=== PATIENT | female | born 1970 | race Caucasian/White ===

== ENCOUNTER 2017-04-10 21:18 | Emergency (ER) | payer OTHER ==
[2017-04-10 23:52] LABS: Anion Gap 23 mmol/L; BUN/Creatinine Ratio 23.33; Blood Urea Nitrogen 14 mg/dL (7-17); Calcium 9.2 mg/dL (8.4-10.2); Carbon Dioxide 24 mmol/L (22-30); Chloride 94.6 mmol/L (98-107); Glucose 374 mg/dL (65-100); Potassium 4.3 mmol/L (3.6-5.0); Sodium 137 mmol/L (137-145)
[2017-04-10 23:52] LABS: Creatine Kinase MB 1.9 ng/mL (0.0-4.0)
[2017-04-10 23:55] LABS: Creatine Kinase 60 units/L (30-135)
[2017-04-11 00:01] LABS: Hematocrit 39.6 % (30.3-42.9); Hemoglobin 13.1 gm/dl (10.1-14.3); Mean Corpuscular HGB Conc 33 % (30-34); Mean Corpuscular Hemoglobin 29 pg (28-32); Mean Corpuscular Volume 88 fl (79-97); Platelet Count 273 K/mm3 (140-440); Red Blood Count 4.53 M/mm3 (3.65-5.03); Red Cell Distribution Width 13.3 % (13.2-15.2); White Blood Count 16.3 K/mm3 (4.5-11.0)
[2017-04-11 00:11] LABS: INR 1.03 (0.87-1.13)
[2017-04-11 00:12] LABS: Partial Thromboplastin Time 28.1 Sec. (24.2-36.6)
[2017-04-11 01:10] LABS: Bacteria,Urine 3+ /HPF (Negative); Bilirubin,Urine NEG (Negative); Blood,Urine LG (Negative); Ketones,Urine 20 mg/dL (Negative); Leukocyte Esterase,Urine TR (Negative); Mucus,Urine FEW /HPF; Nitrite,Urine NEG (Negative); Urobilinogen,Urine < 2.0 mg/dL (<2.0)
[2017-04-11] MEDS ORDERED: ZOFRAN IV ONE (03:56)
[2017-04-11] MEDS ORDERED: CLEOCIN 900 MG/50 mL 900 MG/50 ML BAG IV ONE (03:56)
[2017-04-11] MEDS ORDERED: MORPHINE IV ONE (03:56)
--- NOTE | 2017-04-11 04:01 | Emergency Department Report ---
- General Chief complaint: Skin/Abscess/Foreign Body Stated complaint: ABCESS/RECTAL PAIN Source: patient Mode of arrival: Ambulatory Limitations: No Limitations - History of Present Illness Initial comments: 46 years old female diabetic complaining off left buttock swollen tender lesion for 2 days. She denied any fever nausea or vomiting. No other complaint at this moment. MD complaint: abscess/boil -: days(s) Location: buttocks Severity scale (0 -10): 6 Quality: sharp Associated symptoms: denies other symptoms - Related Data Home Medications Medication Instructions Recorded Confirmed Last Taken Clopidogrel [Plavix] 75 mg PO QDAY 04/11/17 04/11/17 Unknown Insulin Aspart Prot/Aspart(Nf) 20 units SQ DAILY 04/11/17 04/11/17 Unknown [Novolog Mix 70/30] metFORMIN [Glucophage] 500 mg PO BID 04/11/17 04/11/17 Unknown Previous Rx's Medication Instructions Recorded Last Taken Type Clindamycin [Clindamycin CAP] 300 mg PO Q8H #30 cap 04/11/17 Unknown Rx Ondansetron [Zofran Odt] 4 mg PO Q8HR PRN #14 tab.rapdis 04/11/17 Unknown Rx traMADol [Ultram] 50 mg PO Q6HR PRN #14 tablet 04/11/17 Unknown Rx Allergies Allergy/AdvReac Type Severity Reaction Status Date / Time No Known Allergies Allergy Unverified 10/13/13 06:43 Abscess Boil HPI - HPI Chief Complaint: Skin/Abscess/Foreign Body Stated Complaint: ABCESS/RECTAL PAIN Home Medications: Home Medications Medication Instructions Recorded Confirmed Last Taken Clopidogrel [Plavix] 75 mg PO QDAY 04/11/17 04/11/17 Unknown Insulin Aspart Prot/Aspart(Nf) 20 units SQ DAILY 04/11/17 04/11/17 Unknown [Novolog Mix 70/30] metFORMIN [Glucophage] 500 mg PO BID 04/11/17 04/11/17 Unknown Previous Rx's Medication Instructions Recorded Last Taken Type Clindamycin [Clindamycin CAP] 300 mg PO Q8H #30 cap 04/11/17 Unknown Rx Ondansetron [Zofran Odt] 4 mg PO Q8HR PRN #14 tab.rapdis 04/11/17 Unknown Rx traMADol [Ultram] 50 mg PO Q6HR PRN #14 tablet 04/11/17 Unknown Rx Allergies/Adverse Reactions: Allergies Allergy/AdvReac Type Severity Reaction Status Date / Time No Known Allergies Allergy Unverified 10/13/13 06:43 ED Review of Systems ROS: Stated complaint: ABCESS/RECTAL PAIN Other details as noted in HPI Comment: All other systems reviewed and negative Constitutional: denies: chills, fever Respiratory: denies: cough, shortness of breath Cardiovascular: denies: chest pain Gastrointestinal: denies: abdominal pain, nausea, vomiting Musculoskeletal: denies: back pain Skin: lesions Neurological: denies: headache, weakness, numbness ED Past Medical Hx - Past Medical History Previous Medical History?: Yes Hx Hypertension: Yes Hx Heart Attack/AMI: Yes Hx Diabetes: Yes (I) Hx GERD: Yes Hx Asthma: Yes - Surgical History Hx Coronary Stent: Yes Hx Open Heart Surgery: No Additional Surgical History: , stent - Social History Smoking Status: Never Smoker - Medications Home Medications: Home Medications Medication Instructions Recorded Confirmed Last Taken Type Clindamycin [Clindamycin CAP] 300 mg PO Q8H #30 cap 04/11/17 Unknown Rx Clopidogrel [Plavix] 75 mg PO QDAY 04/11/17 04/11/17 Unknown History Insulin Aspart Prot/Aspart(Nf) 20 units SQ DAILY 04/11/17 04/11/17 Unknown History [Novolog Mix 70/30] Ondansetron [Zofran Odt] 4 mg PO Q8HR PRN #14 tab.rapdis 04/11/17 Unknown Rx metFORMIN [Glucophage] 500 mg PO BID 04/11/17 04/11/17 Unknown History traMADol [Ultram] 50 mg PO Q6HR PRN #14 tablet 04/11/17 Unknown Rx ED Physical Exam - General Limitations: No Limitations General appearance: alert, in no apparent distress - Neck Neck exam: Present: normal inspection. Absent: tenderness, meningismus - Respiratory Respiratory exam: Present: normal lung sounds bilaterally. Absent: wheezes, rales, rhonchi - Cardiovascular Cardiovascular Exam: Present: regular rate, normal rhythm, normal heart sounds - GI/Abdominal GI/Abdominal exam: Present: soft. Absent: tenderness, guarding, rebound - Neurological Exam Neurological exam: Present: alert, oriented X3, CN II-XII intact - Expanded Skin Exam Expanded Type of lesion: Present: abscess (left buttock) Distribution of rash: other (left buttock) Description of rash: Present: size (4 x 4), tenderness (not fluctuant), erythematous, swelling. Absent: macular, papular, bullous, discharge, fluctuant ED Course Vital Signs 04/10/17 04/11/17 04/11/17 22:50 02:35 03:45 Temperature 99.4 F 98.7 F 98.5 F Pulse Rate 116 H 116 H 105 H Respiratory 18 18 18 Rate Blood Pressure 157/91 153/94 Blood Pressure 132/77 [Left] O2 Sat by Pulse 97 98 96 Oximetry 04/11/17 04:36 Temperature Pulse Rate Respiratory 18 Rate Blood Pressure Blood Pressure [Left] O2 Sat by Pulse Oximetry - Reevaluation(s) Reevaluation #1: 04/11/17 04:02 Abscess is non-fluctuant and hard. At this moment I think abscess is not ready to be drained. We will start patient on IV clindamycin and given a prescription for clindamycin and pain medicine, I advised patient to control her blood glucose and to follow up with her PRIMARY CARE PHYSICIAN FOR FURTHER MANAGEMENT. ED Medical Decision Making - Lab Data Result diagrams: 04/10/17 23:08 04/10/17 23:08 Critical care attestation.: If time is entered above; I have spent that time in minutes in the direct care of this critically ill patient, excluding procedure time. ED Disposition Clinical Impression: Skin abscess, Hyperglycemia Disposition: DC-01 TO HOME OR SELFCARE Is pt being admited?: No Condition: Stable Instructions: Abscess (ED) Referrals: PRIMARY CARE, [Primary Care Provider] - 3-5 Days
[2017-04-11] MEDS ORDERED: NACL 0.9% 1000 ML 1,000 ML IV ONE (05:41)
[2017-04-11 06:42] VITALS: BP 133/69
== END 2017-04-11 07:02 | disposition home or self-care (01) ==
LOC: ED 21:18
DX: L02.31 Cutaneous abscess of buttock (principal); E10.65 Type 1 diabetes mellitus with hyperglycemia; I10 Essential (primary) hypertension; K21.9 Gastro-esophageal reflux disease without esophagitis; J45.909 Unspecified asthma, uncomplicated; I21.3 ST elevation (STEMI) myocardial infarction of unspecified site
CPT/HCPCS: 36415; 80048; 81001; 82550; 82553; 82962; 84484; 85027; 85610; 85730; 93005; 93010; 96361; 96365; 96375; 96376; 99284; J2270; J2405; J7030; J1815

== ENCOUNTER 2017-04-13 21:19 | Inpatient (IN) | payer OTHER ==
[2017-04-13 21:47] LABS: Basophils % (Auto) 0.3 % (0.0-1.8); Eosinophils % (Auto) 2.9 % (0.0-4.3); Hematocrit 34.6 % (30.3-42.9); Hemoglobin 11.6 gm/dl (10.1-14.3); Mean Corpuscular HGB Conc 33 % (30-34); Mean Corpuscular Hemoglobin 29 pg (28-32); Mean Corpuscular Volume 87 fl (79-97); Platelet Count 266 K/mm3 (140-440); Red Blood Count 3.97 M/mm3 (3.65-5.03); Red Cell Distribution Width 13.3 % (13.2-15.2); White Blood Count 14.5 K/mm3 (4.5-11.0)
[2017-04-13 22:10] LABS: Anion Gap 21 mmol/L; Blood Urea Nitrogen 8 mg/dL (7-17); Calcium 7.8 mg/dL (8.4-10.2); Carbon Dioxide 20 mmol/L (22-30); Chloride 98.7 mmol/L (98-107); Glucose 265 mg/dL (65-100); Potassium 3.9 mmol/L (3.6-5.0); Sodium 136 mmol/L (137-145)
[2017-04-13] MEDS ORDERED: ZOFRAN IV ONE (23:39)
[2017-04-13] MEDS ORDERED: DILAUDID IV ONE (23:39)
[2017-04-13] MEDS ORDERED: XYLOCAINE 1% 20 mL INFILTRATI ONE (23:44)
[2017-04-13] MEDS ORDERED: VANCOMYCIN/NS 1 GM/250 ML 1 GM/250 ML BAG IV ONE (23:51)
[2017-04-13] MEDS ORDERED: NACL 0.9% 1000 ML 1,000 ML IV ONE (23:52)
[2017-04-14] MEDS ORDERED: FLAGYL 500 MG/100 ML 500 MG/100 ML BAG IV SCH
--- NOTE | 2017-04-14 00:02 | Emergency Department Report ---
HPI - General Chief Complaint: Nausea/Vomiting/Diarrhea Time Seen by Provider: 04/13/17 21:36 - HPI HPI: Patient complaining of left buttock area abscess, swelling, redness, painful for 4 days. Patient seen in ED earlier given antibiotics, she states that she took all her medications but symptoms remain. Patient complained of chills at home and low-grade fever. Patient is a diabetic, lost her insurance so has not been compliant with medication. She denies any chest pain, shortness of breath. But she has nausea, vomiting. ED Past Medical Hx - Past Medical History Hx Hypertension: Yes Hx Heart Attack/AMI: Yes Hx Diabetes: Yes (I) Hx GERD: Yes Hx Asthma: Yes - Surgical History Hx Coronary Stent: Yes Hx Open Heart Surgery: No Additional Surgical History: , stent - Social History Smoking Status: Never Smoker Substance Use Type: None - Medications Home Medications: Home Medications Medication Instructions Recorded Confirmed Last Taken Type Clindamycin [Clindamycin CAP] 300 mg PO Q8H #30 cap 04/11/17 Unknown Rx Clopidogrel [Plavix] 75 mg PO QDAY 04/11/17 04/11/17 Unknown History Insulin Aspart Prot/Aspart(Nf) 20 units SQ DAILY 04/11/17 04/11/17 Unknown History [Novolog Mix 70/30] Ondansetron [Zofran Odt] 4 mg PO Q8HR PRN #14 tab.rapdis 04/11/17 Unknown Rx metFORMIN [Glucophage] 500 mg PO BID 04/11/17 04/11/17 Unknown History traMADol [Ultram] 50 mg PO Q6HR PRN #14 tablet 04/11/17 Unknown Rx ED Review of Systems ROS: Stated complaint: ABSCESS/ANUS/EMESIS Other details as noted in HPI Comment: All other systems reviewed and negative Endocrine: no symptoms reported Gastrointestinal: abdominal pain Skin: other (left buttock abscess) Physical Exam - Physical Exam Physical Exam: GENERAL: The patient is well-developed well-nourished. HEENT: Normocephalic. Atraumatic. Extraocular motions are intact. Patient has moist mucous membranes. NECK: Supple. No meningitic signs are noted. There is no adenopathy noted. CHEST/LUNGS: Clear to auscultation. There is no respiratory distress noted. HEART/CARDIOVASCULAR: Regular. There is no tachycardia. There is no gallop rub or murmur. ABDOMEN: Abdomen is soft, nontender. Patient has normal bowel sounds. There is no abdominal distention. SKIN: Left buttock area abscess, continuing to lateral aspect of the vagina not including labia majora, or labia minora. Size of abscess about 12 cm. NEURO: The patient is awake, alert, and oriented. The patient is cooperative. The patient has no focal neurologic deficits. The patient has normal speech and gait. Cranial nerves II through XII grossly intact, no drift. Negative Romberg MUSCULOSKELETAL: good rom in all ext ED Medical Decision Making - Lab Data Result diagrams: 04/13/17 21:38 04/13/17 21:38 Critical care attestation.: If time is entered above; I have spent that time in minutes in the direct care of this critically ill patient, excluding procedure time. ED Disposition Clinical Impression: Perirectal abscess Disposition: OP ADMIT IP TO THIS HOSP Is pt being admited?: Yes Does the pt Need Aspirin: No Condition: Stable Referrals: PRIMARY CARE, [Primary Care Provider] - 3-5 Days
[2017-04-14] MEDS ORDERED: D50W (25GM) Syringe IV PRN ×2 (02:00→02:23)
[2017-04-14] MEDS ORDERED: MILK OF MAGNESIA PO PRN (02:00)
[2017-04-14] MEDS ORDERED: DULCOLAX PR PRN (02:00)
[2017-04-14] MEDS ORDERED: TYLENOL PO PRN (02:00)
[2017-04-14] MEDS ORDERED: NACL 0.45% 1000 ML 1,000 ML IV SCH ×2 (02:00→18:00)
--- NOTE | 2017-04-14 02:02 | History and Physical Report ---
History of Present Illness Date of examination: 04/14/17 History of present illness: 46-year-old woman with a history of diabetes, coronary artery disease currently emergency room with complaints of worsening burning and pain in the left perirectal area. Admits to chills, nausea vomiting. She was seen here 3 days ago for the same symptoms, she developed not in the area and was placed on clindamycin. Her symptoms have worsened so she returned to the emergency room for evaluation Review Of Systems: Constitutional: no fever, weight loss Ears, eyes, nose, mouth and throat: no nasal congestion, no nasal discharge, no sinus pressure, blurry vision, diplopia Neck: No neck pain or rigidity. Cardiovascular: chest pain, orthopnea, palpitations Respiratory: No shortness of breath, cough Gastrointestinal: abdominal pain, hematochezia Genitourinary : no dysuria, frequency , hematuria Musculoskeletal: no joint swelling or muscle ache Integumentary: no rash, no pruritis Neurological: no parathesias, focal weakness Endocrine: no cold or heat intolerance, no polyuria or polydipsia Hematologic/Lymphatic: no easy bruising, no easy bleeding, no gland swelling Allergic/Immunologic: no urticaria, no angioedema. PAST MEDICAL HISTORY:diabetes, coronary artery disease PAST SURGICAL HISTORY: 3 FAMILY HISTORY: Hypertension, diabetes SOCIAL HISTORY: Denies alcohol, tobacco, drugs Medications and Allergies Allergies Allergy/AdvReac Type Severity Reaction Status Date / Time No Known Allergies Allergy Unverified 10/13/13 06:43 Home Medications Medication Instructions Recorded Confirmed Last Taken Type Clindamycin [Clindamycin CAP] 300 mg PO Q8H #30 cap 04/11/17 Unknown Rx Clopidogrel [Plavix] 75 mg PO QDAY 04/11/17 04/11/17 Unknown History Insulin Aspart Prot/Aspart(Nf) 20 units SQ DAILY 04/11/17 04/11/17 Unknown History [Novolog Mix 70/30] Ondansetron [Zofran Odt] 4 mg PO Q8HR PRN #14 tab.rapdis 04/11/17 Unknown Rx metFORMIN [Glucophage] 500 mg PO BID 04/11/17 04/11/17 Unknown History traMADol [Ultram] 50 mg PO Q6HR PRN #14 tablet 04/11/17 Unknown Rx Active Meds: Active Medications Metronidazole (Flagyl 500 Mg/100 Ml) 500 mg in 100 mls @ 100 mls/hr IV Q8H BANDAR Exam - Physical Exam Narrative exam: Gen. appearance: Patient lying in bed, no apparent distress HEENT: Normocephalic, atraumatic, pupils equally round and reactive to light, extraocular movement intact, and no sclericterus,. No JVD or thyromegaly or nodule,neck supple, no carotid bruit ,mucous membranes moist, no exudate or erythema Heart: S1, S2, regular rate and rhythm Lungs: Clear to auscultation bilaterally, breathing comfortable Abdomen: Positive bowel sounds, nontender, nondistended, no organomegaly Extremity: No edema, cyanosis, clubbing Skin: Left perirectal induration, tender, erythema No rash, nodules, warm, dry Neuro: Oriented 3, cranial nerves II-12 intact, speech is fluent, motor and sensory intact Results - Labs CBC & Chem 7: 04/13/17 21:38 04/13/17 21:38 Labs: Abnormal lab results 04/13/17 04/13/17 04/14/17 Range/Units 21:38 21:38 00:03 WBC 14.5 H (4.5-11.0) K/mm3 Lymph % (Auto) 11.0 L (13.4-35.0) % [place] % (Auto) 9.9 H (0.0-7.3) % [place] # 1.4 H (0.0-0.8) K/mm3 Seg Neutrophils % 75.9 H (40.0-70.0) % Seg Neutrophils # 11.0 H (1.8-7.7) K/mm3 Sodium 136 L (137-145) mmol/L Carbon Dioxide 20 L (22-30) mmol/L Creatinine 0.4 L (0.7-1.2) mg/dL Glucose 265 H (65-100) mg/dL Hemoglobin A1c 11.2 H (4-6) % Calcium 7.8 L D (8.4-10.2) mg/dL Assessment and Plan Assessment Pararectal abscess Diabetes type 2 Coronary artery disease Plan Admit to medicine Start IV Zosyn, IV morphine, consult surgery Check fingersticks and initiate insulin sliding scale Start DVT prophylaxis
[2017-04-14] MEDS: ZOSYN/NS 4.5GM/100ML 4.5 GM/100 ML VIAL IV SCH ×3 (06:46→22:18)
[2017-04-14] MEDS: NOVOLOG SUB-Q SCH ×2 (07:41→17:20)
[2017-04-14] MEDS: MORPHINE IV PRN ×2 (07:41→12:18)
--- NOTE | 2017-04-14 08:15 | Admit Criteria Form ---
Admission Criteria Documentation: WOUND COMPLICATIONS Clinical Indications for Inpatient Care (Place 'X' for any and all applicable criteria): Ongoing inpatient care may be indicated for wound complications with ANY ONE of the following (1) (15): [X ]I. Infection with ANY ONE of the following(32)(33): [ ]a) Temperature greater than 38.5 C (101.3 F) [ ]b) Evidence of tissue necrosis [ ]c) Erythema diameter expanding around wound despite treatment [ ]d) Mental status changes [ ]e) Dehydration [ ]f) Bacteremia [ ]g) Hemodynamic instability [ ]h) Suspected necrotizing fasciitis [ ]i) Rapidly spreading lesions [ ]j) High-risk location (eg, perineum, sternum, orbit) [X ]k) High-risk coexisting clinical condition as indicated by ANY ONE of the following: [X ]i) Poorly controlled diabetes [ ]ii) Cirrhosis [ ]iii) Renal failure [ ]iv) Neutropenia [ ] v) Asplenia [ ]vi) Immunosuppression (eg, AIDS, chronic corticosteroid use) [ ]viii) Other high-risk medical comorbidities [ ] II. Dehiscence requiring frequent monitoring or immediate treatment [ ] III. Hematoma with ANY ONE of the following: [ ]a) Hemodynamic instability or acute anemia due to rapid development of hematoma [ ]b) Neck hematoma causing airway compression [ ]c) Retroperitoneal hematoma [ ]d) Uncontrolled coagulopathy [ ]IV. Seroma with evidence of secondary infection and requirement for IV antibiotics [D](31) [ ]V. Pain that cannot be managed at lower level of care Extended stay beyond goal length of stay for primary condition may be needed until ALL of the following are present(1)(33)(34): [ ]a) Afebrile or fever resolving [ ]b) Hemodynamic stability [ ]c) Pain resolving [ ]d) Wound closed, continuity adequately restored, or wound manageable at lower level of care [ ]e) No drain needed or drain care manageable at lower level of care [ ]f) Wound hematoma or seroma resolving [ ]g) Antibiotics not needed or regimen manageable at lower level of care(38) [ ]h) Dressing care manageable at lower level of care [ ]i) Coagulopathy absent, resolved, or treatable at lower level of care [ ]j) Medical comorbidities resolved or treatable at lower level of care The original [facility] [employer] content created by Kiel Arreola has been revised. The portions of the content which have been revised are identified through the use of italic text or in bold, and Kiel Arreola has neither reviewed nor approved the modified material. All other unmodified content is copyright [facility] [employer]. Please see references footnoted in the original [facility] edition 2016 Admission Criteria Met: Yes
[2017-04-14] MEDS ORDERED: FLEET PR ONE (09:30)
--- NOTE | 2017-04-14 09:49 | Anesthesia Day of Surgery ---
Anesthesia Day of Surgery - Day of Surgery Patient Examined: Yes Patient H&P Reviewed: Yes Patient is NPO: Yes
--- NOTE | 2017-04-14 09:49 | Anesthesia Consultation ---
<KIRAN HENDERSON - Last Filed: 04/14/17 09:46> Anesthesia Consult and Med Hx Date of service: 04/14/17 - Airway Anesthetic Teeth Evaluation: Good, Partials (front two teeth) ROM Head & Neck: Adequate Mental/Hyoid Distance: Adequate Mallampati Class: Class I Intubation Access Assessment: Probably Good - Pulmonary Exam CTA: Yes - Cardiac Exam Cardiac Exam: RRR - Pre-Operative Health Status ASA Pre-Surgery Classification: ASA3 Proposed Anesthetic Plan: General - Pulmonary Hx Asthma: Yes (last inhaler 2 months ago) COPD: No Hx Pneumonia: No - Cardiovascular System Hx Hypertension: Yes Hx Heart Attack/AMI: Yes Hx Percutaneous Transluminal Coronary Angioplasty (PTCA): Yes (stent x4) - Central Nervous System Hx Psychiatric Problems: Yes - Gastrointestinal Hx Gastroesophageal Reflux Disease: Yes - Endocrine Hx End Stage Renal Disease: No Hx Non-Insulin Dependent Diabetes: Yes - Other Systems Hx Cancer: No Hx Obesity: Yes <PETRA GRIJALVA - Last Filed: 04/14/17 10:40> Anesthesia Consult and Med Hx - Pre-Anesthesia Comment Pre-Anesthesia Comments: Patient has had cardiac stents placed on 2 ocassions in past, last December 2016. By cath, patient has EF of 35-40%. In December, prior to stent placement, she had no acute ST elevation on EKG. She has had no angina since the stents were placed in December. Due to the emergent nature of the surgery, delay for additional cardiology evaluation would be unwise.
[2017-04-14] MEDS ORDERED: PLAVIX PO SCH (10:00)
[2017-04-14] MEDS ORDERED: VERSED IV NR (10:00)
[2017-04-14] MEDS ORDERED: PEPCID IV NR (10:00)
[2017-04-14] MEDS: NACL 0.9% 1000 ML 1,000 ML IV SCH ×2 (10:26→12:42)
[2017-04-14] MEDS ORDERED: XYLOCAINE MPF 2% ONE (10:47)
[2017-04-14] MEDS ORDERED: AMIDATE IV ONE (10:47)
[2017-04-14] MEDS ORDERED: DECADRON ONE (10:47)
[2017-04-14] MEDS ORDERED: ZOFRAN ONE (10:47)
[2017-04-14] MEDS ORDERED: SUBLIMAZE ONE (10:48)
[2017-04-14] MEDS ORDERED: FLAGYL 500 MG/100 ML 500 MG/100 ML BAG IV NR (11:00)
[2017-04-14] MEDS ORDERED: PNEUMOVAX 23 IM ONE (12:00)
[2017-04-14] MEDS ORDERED: NACL 0.9% IR ONE (12:07)
[2017-04-14] MEDS: DILAUDID IV PRN ×2 (12:40→13:20)
[2017-04-14 14:22] LABS: Hematocrit 30.9 % (30.3-42.9); Hemoglobin 10.2 gm/dl (10.1-14.3)
[2017-04-14] MEDS ORDERED: GELFOAM TP ONE (15:52)
--- NOTE | 2017-04-14 15:52 | Event Note ---
Date: 04/14/17 Pt seen and examined. Seen after surgery, developed rectal bleeding after surgery, will be transfer to ICU. Will monitor H and H, cont abx, follow Cx. Will also continue current Mx as dictated in H and P.
--- NOTE | 2017-04-14 16:18 | Post Anesthesia Evaluation ---
- Post Anesthesia Evaluation Patient Participated: Yes Airway Patent: Yes Stable Respiratory Function: Yes Temp > 96.8F: Yes Pain Manageable: Yes Adequeate Hydration: Yes Anesthesia Complications: No Block Receding Appropriately: Not Applicable
[2017-04-14] MEDS ORDERED: DDAVP 25 MCG in NACL 0.9% 50 ML IV ONE (16:30)
[2017-04-14] MEDS: ZOFRAN IV PRN (16:42)
[2017-04-14 16:47] LABS: Hematocrit 30.2 % (30.3-42.9); Hemoglobin 9.9 gm/dl (10.1-14.3); Mean Corpuscular HGB Conc 33 % (30-34); Mean Corpuscular Hemoglobin 29 pg (28-32); Mean Corpuscular Volume 88 fl (79-97); Platelet Count 271 K/mm3 (140-440); Red Blood Count 3.41 M/mm3 (3.65-5.03); Red Cell Distribution Width 13.8 % (13.2-15.2)
[2017-04-14 17:02] LABS: INR 1.24 (0.87-1.13); Partial Thromboplastin Time 22.2 Sec. (24.2-36.6)
--- NOTE | 2017-04-14 17:13 | Operative Report ---
PREOPERATIVE DIAGNOSIS: Huge perirectal abscess, left side. POSTOPERATIVE DIAGNOSES: 1. Huge perirectal abscess, left side 2. Obesity with diabetes mellitus. SURGERY Examination under anesthesia, proctosigmoidoscopy and unroofing of large perirectal abscess with necrotic tissue that was removed off of the area. ANESTHESIA: General. BLOOD LOSS: Minimal. FINDINGS: As above. I made an incision in a spindle-shaped fashion after doing proctosigmoidoscopy on her up to about cm. Nothing specific was found. So, unroofing was done with a spindle-shaped incision as mentioned above about a good 8 x 2 cm. I was able to poke into the abscess itself, breaking all the loculations and I took a culture as mentioned above and I was able to remove the wall of abscess. The area was then irrigated. I left 2 packings 2-inch each within the depths of the wound itself with a bandage over it. The patient withstood the operation well. She was then transferred to the recovery room in good condition, going to keep her for a good 1 or 2 days with IV antibiotics. JOB# [id number] EDMUNDO/FELECIA GARCIA
[2017-04-14] MEDS ORDERED: ATIVAN PO PRN (17:17)
[2017-04-14] MEDS ORDERED: VITAMIN K (ADULT ONLY) 10 MG in NACL 0.9% 50 ML IV PRN (17:28)
[2017-04-14] MEDS: FLAGYL 500 MG/100 ML 500 MG/100 ML BAG IV SCH ×4 (19:22→23:58)
[2017-04-14 22:17] LABS: Hematocrit 25.1 % (30.3-42.9); Hemoglobin 8.5 gm/dl (10.1-14.3)
[2017-04-14] MEDS: AMBIEN PO PRN (23:54)
--- NOTE | 2017-04-15 00:09 | Consultation ---
HISTORY OF PRESENT ILLNESS: This patient apparently was seen 4 days ago in the Emergency Room because of pain into the perirectal area. She was found to have a small perirectal abscess. She was given antibiotic She came back with the same problem ie bleeding from the wound. This time it is much severe, the abscess is very large, located in the left perirectal and bulmaro vaginal area and to me it is at least about 12 x 4 x 4 cm. There is necrotic tissue deep within abscess itself. I was able to remove all this. I did do a proctosigmoidoscopy on her that was negative. The vaginal examination was negative. She gives a history of diabetes for many years now. This was since she was a child,juvenile onset PHYSICAL EXAMINATION: GENERAL: Examination showed a well preserved, obese, -Thai female. She is in no distress. She is in pain, however, to the rectal area. HEAD AND NECK: Negative. BREASTS: Symmetrical. CHEST: Essentially clear. HEART: Sound normal. ABDOMEN: Protuberant, soft, benign. RECTAL: Showed the above huge mass that is indurated, red and very tender. To me, it measured a good 15 x 15 cm, located in the left perivaginal and perirectal area. IMPRESSION AND PLAN: 1. Large perirecto vaginal abscess. 2. Diabetes mellitus since she was a child, exogenous obesity. JOB# [id number] EDMUNDO/FELECIA GARCIA
[2017-04-15] MEDS: NOVOLOG SUB-Q SCH ×5 (02:00→18:15)
[2017-04-15 04:37] LABS: Basophils % (Auto) 0.2 % (0.0-1.8); Eosinophils % (Auto) 0.5 % (0.0-4.3); Hematocrit 23.3 % (30.3-42.9); Hemoglobin 7.8 gm/dl (10.1-14.3); Mean Corpuscular HGB Conc 34 % (30-34); Mean Corpuscular Hemoglobin 29 pg (28-32); Mean Corpuscular Volume 87 fl (79-97); Platelet Count 257 K/mm3 (140-440); Red Blood Count 2.69 M/mm3 (3.65-5.03); Red Cell Distribution Width 13.6 % (13.2-15.2); White Blood Count 14.2 K/mm3 (4.5-11.0)
--- NOTE | 2017-04-15 04:40 | Operative Report ---
PREOPERATIVE DIAGNOSES: Huge perirectal and perivaginal abscess. POSTOPERATIVE DIAGNOSES: Huge perirectal and perivaginal abscess. This was done about ____ hours ago. The patient in the recovery room apparently because we left the wound open and in fact she had considerable amount of bleeding from the area requiring removing the packing and put a new one including Raheel spray and Surgicel. Apparently, this worked for a while, maybe half to one hour. Then, she started to bleed again. This came after she had severe coughing on the floor with the above-mentioned ones and excessive bleeding she came back to PACU to re-examine ____ enough that there is considerable amount of blood in the packing. I left a packing as is. I did not do anything on it. I just reinforced it by putting Gelfoam and good bandage. I believe this patient needs to be under close observation either here or in the Intensive Care Unit because the bleeding is considerable and her hematocrit went from 12 to 11. We are going to pursue that further. JOB# [id number] EDMUNDO/FELECIA
[2017-04-15 04:50] LABS: Anion Gap 20 mmol/L; Blood Urea Nitrogen 6 mg/dL (7-17); Calcium 7.1 mg/dL (8.4-10.2); Carbon Dioxide 19 mmol/L (22-30); Chloride 99.4 mmol/L (98-107); Glucose 229 mg/dL (65-100); Potassium 3.6 mmol/L (3.6-5.0); Sodium 135 mmol/L (137-145)
[2017-04-15] MEDS: FLAGYL 500 MG/100 ML 500 MG/100 ML BAG IV SCH ×3 (05:30→18:06)
[2017-04-15] MEDS: ZOSYN/NS 4.5GM/100ML 4.5 GM/100 ML VIAL IV SCH ×2 (06:52→15:00)
[2017-04-15] MEDS: LOVENOX SUB-Q SCH ×2 (10:20→10:39)
--- NOTE | 2017-04-15 13:38 | Consultation ---
History of Present Illness Consult date: 04/15/17 History of present illness: 46-year-old woman with a history of diabetes, coronary artery disease currently emergency room with complaints of worsening burning and pain in the left perirectal area. Admits to chills, nausea vomiting. She was seen here 3 days ago for the same symptoms, she developed not in the area and was placed on clindamycin. Her symptoms have worsened so she returned to the emergency room for evaluation. Was seen by the surgery service had a perirectal abscess which was de-roofed. Had significant bleeding. was called by the surgeon to admit patient in the ICU for overnight monitoring secondary to significant hemorrhage. Seen and examined, vitals, labs, medications, chart reviewed. No acute overnight events. Review Of Systems: Constitutional: no fever, weight loss Ears, eyes, nose, mouth and throat: no nasal congestion, no nasal discharge, no sinus pressure, blurry vision, diplopia Neck: No neck pain or rigidity. Cardiovascular: chest pain, orthopnea, palpitations Respiratory: No shortness of breath, cough Gastrointestinal: abdominal pain, hematochezia Genitourinary : no dysuria, frequency , hematuria Musculoskeletal: no joint swelling or muscle ache Integumentary: no rash, no pruritis Neurological: no parathesias, focal weakness Endocrine: no cold or heat intolerance, no polyuria or polydipsia Hematologic/Lymphatic: no easy bruising, no easy bleeding, no gland swelling Allergic/Immunologic: no urticaria, no angioedema. PAST MEDICAL HISTORY:diabetes, coronary artery disease PAST SURGICAL HISTORY: 3 FAMILY HISTORY: Hypertension, diabetes SOCIAL HISTORY: Denies alcohol, tobacco, drugs Medications and Allergies Allergies Allergy/AdvReac Type Severity Reaction Status Date / Time No Known Allergies Allergy Unverified 10/13/13 06:43 Home Medications Medication Instructions Recorded Confirmed Last Taken Type Clindamycin [Clindamycin CAP] 300 mg PO Q8H #30 cap 04/11/17 04/14/17 Unknown Rx Clopidogrel [Plavix] 75 mg PO QDAY 04/11/17 04/14/17 Unknown History Insulin Aspart Prot/Aspart(Nf) 20 units SQ DAILY 04/11/17 04/14/17 Unknown History [Novolog Mix 70/30] Ondansetron [Zofran Odt] 4 mg PO Q8HR PRN #14 tab.rapdis 04/11/17 04/14/17 Unknown Rx metFORMIN [Glucophage] 500 mg PO BID 04/11/17 04/14/17 Unknown History traMADol [Ultram] 50 mg PO Q6HR PRN #14 tablet 04/11/17 04/14/17 Unknown Rx Active Meds: Active Medications Acetaminophen (Tylenol) 650 mg PO Q4H PRN PRN Reason: Pain MILD(1-3)/Fever >100.5/PLUMMER Dextrose (D50w (25gm)) 50 ml IV PRN PRN PRN Reason: Hypoglycemia Enoxaparin Sodium (Lovenox) 40 mg SUB-Q QDAY [facility] Last Admin: 04/15/17 10:39 Dose: Not Given Piperacillin Sod/Tazobactam Sod (Zosyn/Ns 4.5gm/100ml) 4.5 gm in 100 mls @ 200 mls/hr IV Q8HR BANDAR PRN Reason: Protocol Last Admin: 04/15/17 06:52 Dose: 200 mls/hr Metronidazole (Flagyl 500 Mg/100 Ml) 500 mg in 100 mls @ 100 mls/hr IV Q6HR [facility] Last Admin: 04/15/17 11:50 Dose: 100 mls/hr Phytonadione 10 mg/ Sodium (Chloride) 51 mls @ 100 mls/hr IV ONCE PRN PRN Reason: Bleeding Last Admin: 04/14/17 20:14 Dose: 100 mls/hr Sodium Chloride (Nacl 0.45% 1000 Ml) 1,000 mls @ 100 mls/hr IV DIRECT [facility] Vancomycin HCl 1,250 mg/ (Sodium Chloride) 262.5 mls @ 131.25 mls/hr IV Q8H [facility] Insulin Aspart (Novolog) 0 units SUB-Q ACHS [facility] PRN Reason: Protocol Last Admin: 04/15/17 12:06 Dose: 4 units Insulin Human Isoph/Insulin Regular (Novolin 70/30) 8 unit SUB-Q BIDDIAB [facility] Lorazepam (Ativan) 1 mg PO Q4H PRN PRN Reason: Agitation Magnesium Hydroxide (Milk Of Magnesia) 30 ml PO Q4H PRN PRN Reason: Constipation Ondansetron HCl (Zofran) 4 mg IV Q8H PRN PRN Reason: N/V unrelieved by Reglan Last Admin: 04/14/17 16:42 Dose: 4 mg Zolpidem Tartrate (Ambien) 5 mg PO QHS PRN PRN Reason: Sleep Last Admin: 04/14/17 23:54 Dose: 5 mg Review of Systems Constitutional: fatigue, malaise, no weight loss, no weight gain, no fever, no chills, no night sweats, no chronic headaches Ears, nose, mouth and throat: no ear pain, no ear discharge, no decreased hearing, no hoarseness, no odynophagia Breasts: no discharge, no pain Cardiovascular: no chest pain, no orthopnea, no palpitations, no edema, no syncope, no lightheadedness, no shortness of breath, no dyspnea on exertion Respiratory: no cough, no cough with sputum, no excessive sputum, no hemoptysis , no shortness of breath Gastrointestinal: no abdominal pain, no nausea, no vomiting, no constipation, no early satiety, no heartburn, no dyspepsia/bloating Genitourinary Female: dysmenorrhea, no hematuria, no nocturia, no vaginal itching Rectal: no pain, no hemorrhoids Musculoskeletal: no neck stiffness, no neck pain, no arm numbness/tingling, no shooting leg pain, no morning stiffness, no muscle cramps Integumentary: no rash, no pruritis, no wounds, no jaundice, no darkening of skin, no depigmentation Neurological: no head injury, no transient paralysis, no parathesias, no tingling, no seizures, no aphasia, no confusion, no balance difficulties, no paralysis Psychiatric: no anxiety, no change in sleep habits, no hypersomnia, no hopelessness, no anhedonia, no confusion Endocrine: no cold intolerance, no heat intolerance, no excessive thirst, no polydipsia Hematologic/Lymphatic: no easy bruising, no lymphadenopathy, no lymphedema Allergic/Immunologic: no urticaria, no wheezing, no persistent infections Physical Examination Vital signs: Vital Signs Pulse Resp BP Pulse Ox 88 18 134/65 98 04/13/17 22:00 04/13/17 22:00 04/13/17 22:00 04/13/17 22:00 General appearance: no acute distress Eyes: non-icteric ENT: oropharynx moist Neck: supple, no lymphadenopathy, no JVD Effort: normal Ascultation: Bilateral: clear Cardiovascular: regular rate and rhythm Gastrointestinal: normoactive bowel sounds, soft, non-tender, non-distended Integumentary: normal Extremities: no cyanosis, no edema, pink and warm, pulses normal, no ischemia or petechiae Musculoskeletal: no deformities normal mental status, non-focal exam, pupils equal and round, CN II-XII normal mood appropriate, affect normal Results - Laboratory Findings CBC and BMP: 04/16/17 03:23 04/16/17 03:23 PT/INR, D-dimer PT 15.5 Sec. (12.2-14.9) H 04/14/17 16:28 INR 1.24 (0.87-1.13) H 04/14/17 16:28 Abnormal lab findings: Abnormal Labs 04/14/17 04/14/17 04/14/17 06:12 12:05 14:10 WBC RBC Hgb Hct Lymph % (Auto) [place] % (Auto) [place] # Seg Neutrophils % Seg Neutrophils # PT INR APTT Sodium Carbon Dioxide BUN Creatinine Glucose POC Glucose 217 H 249 H 196 H Calcium 04/14/17 04/14/17 04/14/17 16:28 16:28 17:29 WBC 18.0 H RBC 3.41 L Hgb 9.9 L Hct 30.2 L Lymph % (Auto) [place] % (Auto) [place] # Seg Neutrophils % Seg Neutrophils # PT 15.5 H INR 1.24 H APTT 22.2 L Sodium Carbon Dioxide BUN Creatinine Glucose POC Glucose 301 H Calcium 04/14/17 04/14/17 04/15/17 21:38 22:04 03:50 WBC 14.2 H RBC 2.69 L Hgb 8.5 L 7.8 L Hct 25.1 L 23.3 L Lymph % (Auto) 12.5 L [place] % (Auto) 10.9 H [place] # 1.6 H Seg Neutrophils % 75.9 H Seg Neutrophils # 10.8 H PT INR APTT Sodium Carbon Dioxide BUN Creatinine Glucose POC Glucose 281 H Calcium 04/15/17 04/15/17 03:50 07:49 WBC RBC Hgb Hct Lymph % (Auto) [place] % (Auto) [place] # Seg Neutrophils % Seg Neutrophils # PT INR APTT Sodium 135 L Carbon Dioxide 19 L BUN 6 L Creatinine 0.5 L Glucose 229 H POC Glucose 224 H Calcium 7.1 L Assessment and Plan Perirectal abscess s/p debridment and deroofing, with significant intraoperative hemorrhage. -Was monitored overnight in the ICU. Remains hemodynamically stable. Ok to transfer to telemetry and monitor hemoglobin trends. VTE prophylaxis-SCDs for now, early mobilization. Diabetes type 2 Coronary artery disease - Patient Problems (1) Acute blood loss as cause of postoperative anemia Current Visit: Yes Status: Acute Plan to address problem: Monitor hemodynamics and hemoglobin If stable over night transfer to surgical floor (2) Perirectal abscess Current Visit: Yes Status: Acute Plan to address problem: As per surgical service
[2017-04-15] MEDS ORDERED: VANCOMYCIN/NS 1 GM/250 ML 1 GM/250 ML BAG IV SCH (14:00)
[2017-04-15] MEDS: NACL 0.45% 1000 ML 1,000 ML IV SCH (14:59)
[2017-04-15] MEDS ORDERED: PERCOCET 5/325 PO PRN (16:07)
[2017-04-15] MEDS ORDERED: MORPHINE IV PRN (16:07)
--- NOTE | 2017-04-15 16:09 | Progress Note ---
Assessment and Plan Sepsis, present on admission - Due to perirectal abscess - Status post I&D on 04/14/17 - Continue IV antibiotics Pararectal abscess - Status post I&D on 04/14/17 - Continue IV antibiotics - We'll follow final culture - Patient is still high spiking fever - Patient on Zosyn now will add vancomycin Acute blood loss anemia - We will monitor H&H - Expected outcome following surgical debridement - We'll transfuse if hemoglobin drops below 7 Diabetes type 2 - Continue ADA diet and sliding scale of insulin Coronary artery disease - Resume home meds DVT prophylaxis, place on SCD Brief history: 46-year-old woman with a history of diabetes, coronary artery disease presented to the emergency room with complaints of worsening burning and pain in the left perirectal area. She was seen here 3 days ago for the same symptoms, and was placed on clindamycin. Her symptoms have worsened so she returned to the emergency room for evaluation. Subjective Date of service: 04/15/17 Interval history: Pt seen and examined continue to have recurrent bleeding from the perirectal area spiked fever early this am Objective - Exam Narrative Exam: Gen. appearance: Patient lying in bed, no apparent distress HEENT: Normocephalic, atraumatic, pupils equally round and reactive to light, extraocular movement intact, and no sclericterus,. No JVD or thyromegaly or nodule,neck supple, no carotid bruit ,mucous membranes moist, no exudate or erythema Heart: S1, S2, regular rate and rhythm Lungs: Clear to auscultation bilaterally, breathing comfortable Abdomen: Positive bowel sounds, nontender, nondistended, no organomegaly Extremity: No edema, cyanosis, clubbing Skin: perirectal area with dressing which is socked with blood Neuro: Oriented 3, cranial nerves II-12 intact, speech is fluent, motor and sensory intact - Constitutional Vitals: Vital Signs - 12hr 04/15/17 04/15/17 04/15/17 07:47 12:00 15:26 Temperature 98.4 F 98.6 F 98.1 F Pulse Rate 96 H Respiratory 20 Rate Blood Pressure 124/63 O2 Sat by Pulse 98 Oximetry - Labs CBC & Chem 7: 04/16/17 03:23 04/16/17 03:23 Labs: Abnormal lab results 04/14/17 04/14/17 04/14/17 Range/Units 16:28 16:28 17:29 WBC 18.0 H (4.5-11.0) K/mm3 RBC 3.41 L (3.65-5.03) M/mm3 Hgb 9.9 L (10.1-14.3) gm/dl Hct 30.2 L (30.3-42.9) % Lymph % (Auto) (13.4-35.0) % [place] % (Auto) (0.0-7.3) % [place] # (0.0-0.8) K/mm3 Seg Neutrophils % (40.0-70.0) % Seg Neutrophils # (1.8-7.7) K/mm3 PT 15.5 H (12.2-14.9) Sec. INR 1.24 H (0.87-1.13) APTT 22.2 L (24.2-36.6) Sec. Sodium (137-145) mmol/L Carbon Dioxide (22-30) mmol/L BUN (7-17) mg/dL Creatinine (0.7-1.2) mg/dL Glucose (65-100) mg/dL POC Glucose 301 H (70-105) Calcium (8.4-10.2) mg/dL 04/14/17 04/14/17 04/15/17 Range/Units 21:38 22:04 03:50 WBC 14.2 H (4.5-11.0) K/mm3 RBC 2.69 L (3.65-5.03) M/mm3 Hgb 8.5 L 7.8 L (10.1-14.3) gm/dl Hct 25.1 L 23.3 L (30.3-42.9) % Lymph % (Auto) 12.5 L (13.4-35.0) % [place] % (Auto) 10.9 H (0.0-7.3) % [place] # 1.6 H (0.0-0.8) K/mm3 Seg Neutrophils % 75.9 H (40.0-70.0) % Seg Neutrophils # 10.8 H (1.8-7.7) K/mm3 PT (12.2-14.9) Sec. INR (0.87-1.13) APTT (24.2-36.6) Sec. Sodium (137-145) mmol/L Carbon Dioxide (22-30) mmol/L BUN (7-17) mg/dL Creatinine (0.7-1.2) mg/dL Glucose (65-100) mg/dL POC Glucose 281 H (70-105) Calcium (8.4-10.2) mg/dL 04/15/17 04/15/17 Range/Units 03:50 07:49 WBC (4.5-11.0) K/mm3 RBC (3.65-5.03) M/mm3 Hgb (10.1-14.3) gm/dl Hct (30.3-42.9) % Lymph % (Auto) (13.4-35.0) % [place] % (Auto) (0.0-7.3) % [place] # (0.0-0.8) K/mm3 Seg Neutrophils % (40.0-70.0) % Seg Neutrophils # (1.8-7.7) K/mm3 PT (12.2-14.9) Sec. INR (0.87-1.13) APTT (24.2-36.6) Sec. Sodium 135 L (137-145) mmol/L Carbon Dioxide 19 L (22-30) mmol/L BUN 6 L (7-17) mg/dL Creatinine 0.5 L (0.7-1.2) mg/dL Glucose 229 H (65-100) mg/dL POC Glucose 224 H (70-105) Calcium 7.1 L (8.4-10.2) mg/dL
[2017-04-15] MEDS: VANCOMYCIN 1,250 MG in NACL 0.9% 250ML 250 ML IV SCH (16:36)
[2017-04-15 19:41] LABS: Hematocrit 20.6 % (30.3-42.9); Hemoglobin 6.9 gm/dl (10.1-14.3); Mean Corpuscular HGB Conc 33 % (30-34); Mean Corpuscular Hemoglobin 29 pg (28-32); Mean Corpuscular Volume 87 fl (79-97); Platelet Count 248 K/mm3 (140-440); Red Blood Count 2.37 M/mm3 (3.65-5.03); Red Cell Distribution Width 13.6 % (13.2-15.2); White Blood Count 10.6 K/mm3 (4.5-11.0)
[2017-04-16] MEDS: NOVOLOG SUB-Q SCH ×4 (00:24→17:46)
[2017-04-16] MEDS: AMBIEN PO PRN ×2 (00:24→21:52)
[2017-04-16] MEDS: ZOSYN/NS 4.5GM/100ML 4.5 GM/100 ML VIAL IV SCH ×4 (00:26→21:46)
[2017-04-16] MEDS: FLAGYL 500 MG/100 ML 500 MG/100 ML BAG IV SCH ×2 (01:24→06:48)
[2017-04-16] MEDS: VANCOMYCIN 1,250 MG in NACL 0.9% 250ML 250 ML IV SCH ×3 (02:32→16:30)
[2017-04-16 04:40] LABS: Basophils % (Auto) 0.7 % (0.0-1.8); Eosinophils % (Auto) 2.6 % (0.0-4.3); Hematocrit 22.1 % (30.3-42.9); Hemoglobin 7.4 gm/dl (10.1-14.3); Mean Corpuscular HGB Conc 34 % (30-34); Mean Corpuscular Hemoglobin 29 pg (28-32); Mean Corpuscular Volume 85 fl (79-97); Platelet Count 254 K/mm3 (140-440); Red Blood Count 2.59 M/mm3 (3.65-5.03); Red Cell Distribution Width 13.4 % (13.2-15.2); White Blood Count 11.3 K/mm3 (4.5-11.0)
[2017-04-16 05:00] LABS: Anion Gap 18 mmol/L; Blood Urea Nitrogen 3 mg/dL (7-17); Calcium 7.7 mg/dL (8.4-10.2); Carbon Dioxide 20 mmol/L (22-30); Chloride 100.7 mmol/L (98-107); Glucose 265 mg/dL (65-100); Sodium 136 mmol/L (137-145)
[2017-04-16] MEDS: ZOFRAN IV PRN (06:06)
[2017-04-16] MEDS ORDERED: K-DUR PO ONE (08:00)
[2017-04-16] MEDS ORDERED: NACL 0.9% 500 ML 500 ML IV ONE (09:36)
--- NOTE | 2017-04-16 09:46 | Progress Note ---
Subjective Narrative: Hgb low 7 , Pt gives a Hx of 2 MIs , will Tx 2 units packed cells , ,12 Lead EKG.and cardiology to see [phone]. Objective Vital Signs - 12hr 04/15/17 04/16/17 04/16/17 23:00 01:35 04:40 Temperature 99.0 F 98.5 F Pulse Rate 107 H 101 H Respiratory 16 20 16 Rate Blood Pressure 116/65 114/62 O2 Sat by Pulse 100 100 Oximetry 04/16/17 07:40 Temperature 98 F Pulse Rate 100 H Respiratory 20 Rate Blood Pressure 131/70 O2 Sat by Pulse 100 Oximetry - Labs 04/16/17 03:23 04/16/17 03:23 Diabetes panel 04/16/17 Range/Units 03:23 Sodium 136 L (137-145) mmol/L Potassium 3.0 L (3.6-5.0) mmol/L Chloride 100.7 (98-107) mmol/L Carbon Dioxide 20 L (22-30) mmol/L BUN 3 L (7-17) mg/dL Creatinine 0.4 L (0.7-1.2) mg/dL Glucose 265 H (65-100) mg/dL Calcium 7.7 L (8.4-10.2) mg/dL Calcium panel 04/16/17 Range/Units 03:23 Calcium 7.7 L (8.4-10.2) mg/dL Pituitary panel 04/16/17 Range/Units 03:23 Sodium 136 L (137-145) mmol/L Potassium 3.0 L (3.6-5.0) mmol/L Chloride 100.7 (98-107) mmol/L Carbon Dioxide 20 L (22-30) mmol/L BUN 3 L (7-17) mg/dL Creatinine 0.4 L (0.7-1.2) mg/dL Glucose 265 H (65-100) mg/dL Calcium 7.7 L (8.4-10.2) mg/dL Adrenal panel 04/16/17 Range/Units 03:23 Sodium 136 L (137-145) mmol/L Potassium 3.0 L (3.6-5.0) mmol/L Chloride 100.7 (98-107) mmol/L Carbon Dioxide 20 L (22-30) mmol/L BUN 3 L (7-17) mg/dL Creatinine 0.4 L (0.7-1.2) mg/dL Glucose 265 H (65-100) mg/dL Calcium 7.7 L (8.4-10.2) mg/dL
--- NOTE | 2017-04-16 10:57 | Event Note ---
Date: 04/16/17 No acute overnight events reported. Remains clinically stable. Will monitor peripherally
--- NOTE | 2017-04-16 11:56 | Event Note ---
Date: 04/16/[address] Carlos Young-please refer to cardiac intervention report from 12/2016. Direct cardiac consultation to Dr Young's service. Thank you.
[2017-04-16] MEDS: NACL 0.45% 1000 ML 1,000 ML IV SCH (14:05)
[2017-04-16] MEDS ORDERED: NACL 0.9% 500 ML 500 ML ONE (14:15)
--- NOTE | 2017-04-16 15:56 | Progress Note ---
Assessment and Plan Sepsis, present on admission - Due to perirectal abscess - Status post I&D on 04/14/17 - Continue IV antibiotics Pararectal abscess - Status post I&D on 04/14/17 - Continue IV antibiotics - We'll follow final culture - Patient is still high spiking fever - Patient on Zosyn and vancomycin Acute blood loss anemia - We will monitor H&H - Expected outcome following surgical debridement - We'll transfuse 2 units PRBC today Diabetes type 2 - Continue ADA diet and sliding scale of insulin Coronary artery disease - Resume home meds - on held plavix for now due to active bleeding - consulted cardiology DVT prophylaxis, placed on SCD Brief history: 46-year-old woman with a history of diabetes, coronary artery disease presented to the emergency room with complaints of worsening burning and pain in the left perirectal area. She was seen here 3 days ago for the same symptoms, and was placed on clindamycin. Her symptoms have worsened so she returned to the emergency room for evaluation. Subjective Date of service: 04/16/17 Interval history: Pt seen and examined continue to have recurrent bleeding from the perirectal area, but much less today H and h dropped to 7.4 spiked fever early this am Objective - Exam Narrative Exam: Gen. appearance: Patient lying in bed, no apparent distress HEENT: Normocephalic, atraumatic, pupils equally round and reactive to light, extraocular movement intact, and no sclericterus,. No JVD or thyromegaly or nodule,neck supple, no carotid bruit ,mucous membranes moist, no exudate or erythema Heart: S1, S2, regular rate and rhythm Lungs: Clear to auscultation bilaterally, breathing comfortable Abdomen: Positive bowel sounds, nontender, nondistended, no organomegaly Extremity: No edema, cyanosis, clubbing Skin: perirectal area with dressing which is socked with clotted blood Neuro: Oriented 3, motor and sensory intact psych ; appears depressed - Constitutional Vitals: Vital Signs - 12hr 04/16/17 04/16/17 04/16/17 04:40 07:40 11:00 Temperature 98.5 F 98 F 97.8 F Pulse Rate 101 H 100 H 92 H Respiratory 16 20 18 Rate Blood Pressure 114/62 131/70 134/66 O2 Sat by Pulse 100 100 Oximetry 04/16/17 04/16/17 04/16/17 14:31 14:46 15:53 Temperature 97.8 F 98.1 F 97.9 F Pulse Rate 92 H 95 H 96 H Respiratory 18 18 Rate Blood Pressure 134/66 119/71 113/61 O2 Sat by Pulse Oximetry - Labs CBC & Chem 7: 04/16/17 03:23 04/16/17 03:23 Labs: Abnormal lab results 04/15/17 04/15/17 04/15/17 Range/Units 12:06 16:21 19:16 WBC (4.5-11.0) K/mm3 RBC 2.37 L (3.65-5.03) M/mm3 Hgb 6.9 L (10.1-14.3) gm/dl Hct 20.6 L (30.3-42.9) % Lymph % (Auto) (13.4-35.0) % [place] % (Auto) (0.0-7.3) % [place] # (0.0-0.8) K/mm3 Seg Neutrophils % (40.0-70.0) % Seg Neutrophils # (1.8-7.7) K/mm3 Sodium (137-145) mmol/L Potassium (3.6-5.0) mmol/L Carbon Dioxide (22-30) mmol/L BUN (7-17) mg/dL Creatinine (0.7-1.2) mg/dL Glucose (65-100) mg/dL POC Glucose 240 H 237 H (70-105) Calcium (8.4-10.2) mg/dL Crossmatch 04/15/17 04/16/17 04/16/17 Range/Units 22:24 03:23 03:23 WBC 11.3 H (4.5-11.0) K/mm3 RBC 2.59 L (3.65-5.03) M/mm3 Hgb 7.4 L (10.1-14.3) gm/dl Hct 22.1 L (30.3-42.9) % Lymph % (Auto) 12.8 L (13.4-35.0) % [place] % (Auto) 11.2 H (0.0-7.3) % [place] # 1.3 H (0.0-0.8) K/mm3 Seg Neutrophils % 72.7 H (40.0-70.0) % Seg Neutrophils # 8.2 H (1.8-7.7) K/mm3 Sodium 136 L (137-145) mmol/L Potassium 3.0 L (3.6-5.0) mmol/L Carbon Dioxide 20 L (22-30) mmol/L BUN 3 L (7-17) mg/dL Creatinine 0.4 L (0.7-1.2) mg/dL Glucose 265 H (65-100) mg/dL POC Glucose 255 H (70-105) Calcium 7.7 L (8.4-10.2) mg/dL Crossmatch 04/16/17 04/16/17 Range/Units 07:05 10:52 WBC (4.5-11.0) K/mm3 RBC (3.65-5.03) M/mm3 Hgb (10.1-14.3) gm/dl Hct (30.3-42.9) % Lymph % (Auto) (13.4-35.0) % [place] % (Auto) (0.0-7.3) % [place] # (0.0-0.8) K/mm3 Seg Neutrophils % (40.0-70.0) % Seg Neutrophils # (1.8-7.7) K/mm3 Sodium (137-145) mmol/L Potassium (3.6-5.0) mmol/L Carbon Dioxide (22-30) mmol/L BUN (7-17) mg/dL Creatinine (0.7-1.2) mg/dL Glucose (65-100) mg/dL POC Glucose 279 H (70-105) Calcium (8.4-10.2) mg/dL Crossmatch See Detail
--- NOTE | 2017-04-16 16:30 | Progress Note ---
Subjective Patient Reports: Positive: feels better, pain is less Narrative: doing OK recieving blood , packing 1/2 removed Objective Vital Signs - 12hr 04/16/17 04/16/17 04/16/17 04:40 07:40 11:00 Temperature 98.5 F 98 F 97.8 F Pulse Rate 101 H 100 H 92 H Respiratory 16 20 18 Rate Blood Pressure 114/62 131/70 134/66 O2 Sat by Pulse 100 100 Oximetry 04/16/17 04/16/17 04/16/17 14:31 14:46 15:53 Temperature 97.8 F 98.1 F 97.9 F Pulse Rate 92 H 95 H 96 H Respiratory 18 18 Rate Blood Pressure 134/66 119/71 113/61 O2 Sat by Pulse Oximetry - Labs 04/16/17 03:23 04/16/17 03:23 Diabetes panel 04/16/17 Range/Units 03:23 Sodium 136 L (137-145) mmol/L Potassium 3.0 L (3.6-5.0) mmol/L Chloride 100.7 (98-107) mmol/L Carbon Dioxide 20 L (22-30) mmol/L BUN 3 L (7-17) mg/dL Creatinine 0.4 L (0.7-1.2) mg/dL Glucose 265 H (65-100) mg/dL Calcium 7.7 L (8.4-10.2) mg/dL Calcium panel 04/16/17 Range/Units 03:23 Calcium 7.7 L (8.4-10.2) mg/dL Pituitary panel 04/16/17 Range/Units 03:23 Sodium 136 L (137-145) mmol/L Potassium 3.0 L (3.6-5.0) mmol/L Chloride 100.7 (98-107) mmol/L Carbon Dioxide 20 L (22-30) mmol/L BUN 3 L (7-17) mg/dL Creatinine 0.4 L (0.7-1.2) mg/dL Glucose 265 H (65-100) mg/dL Calcium 7.7 L (8.4-10.2) mg/dL Adrenal panel 04/16/17 Range/Units 03:23 Sodium 136 L (137-145) mmol/L Potassium 3.0 L (3.6-5.0) mmol/L Chloride 100.7 (98-107) mmol/L Carbon Dioxide 20 L (22-30) mmol/L BUN 3 L (7-17) mg/dL Creatinine 0.4 L (0.7-1.2) mg/dL Glucose 265 H (65-100) mg/dL Calcium 7.7 L (8.4-10.2) mg/dL
[2017-04-16] MEDS ORDERED: NACL 0.9% 500 ML 500 ML IV SCH (23:45)
[2017-04-17] MEDS: NOVOLOG SUB-Q SCH ×3 (00:14→12:30)
[2017-04-17] MEDS: ZOFRAN IV PRN (03:34)
[2017-04-17] MEDS: VANCOMYCIN 1,250 MG in NACL 0.9% 250ML 250 ML IV SCH ×3 (04:47→14:21)
[2017-04-17 05:58] LABS: Hematocrit 25.5 % (30.3-42.9); Hemoglobin 8.7 gm/dl (10.1-14.3); Mean Corpuscular HGB Conc 34 % (30-34); Mean Corpuscular Hemoglobin 30 pg (28-32); Mean Corpuscular Volume 87 fl (79-97); Platelet Count 258 K/mm3 (140-440); Red Blood Count 2.95 M/mm3 (3.65-5.03); Red Cell Distribution Width 13.9 % (13.2-15.2); White Blood Count 9.3 K/mm3 (4.5-11.0)
[2017-04-17 06:16] LABS: Anion Gap 19 mmol/L; BUN/Creatinine Ratio 6.66; Blood Urea Nitrogen 2 mg/dL (7-17); Calcium 7.5 mg/dL (8.4-10.2); Carbon Dioxide 19 mmol/L (22-30); Glucose 199 mg/dL (65-100); Potassium 3.4 mmol/L (3.6-5.0); Sodium 139 mmol/L (137-145)
[2017-04-17] MEDS: ZOSYN/NS 4.5GM/100ML 4.5 GM/100 ML VIAL IV SCH ×2 (06:49→14:21)
[2017-04-17] MEDS ORDERED: PLAVIX PO SCH (11:00)
[2017-04-17] MEDS ORDERED: K-DUR PO ONE (12:52)
--- NOTE | 2017-04-17 12:55 | Progress Note ---
Subjective Patient Reports: Positive: flatus, bowel movement Narrative: doing fine pain less Hcrt 25, sits baths QID to see me in 2 weeks . Objective Vital Signs - 12hr 04/17/17 04/17/17 04/17/17 01:19 01:49 03:51 Temperature 98.2 F 98 F 98.6 F Pulse Rate 92 H 88 88 Respiratory 18 18 20 Rate Blood Pressure 120/74 120/74 125/79 O2 Sat by Pulse 98 99 Oximetry 04/17/17 07:10 Temperature 98.2 F Pulse Rate 90 Respiratory 20 Rate Blood Pressure 129/77 O2 Sat by Pulse Oximetry - Labs 04/17/17 05:22 04/17/17 05:22 Diabetes panel 04/17/17 Range/Units 05:22 Sodium 139 (137-145) mmol/L Potassium 3.4 L (3.6-5.0) mmol/L Chloride 104.0 (98-107) mmol/L Carbon Dioxide 19 L (22-30) mmol/L BUN 2 L (7-17) mg/dL Creatinine 0.3 L (0.7-1.2) mg/dL Glucose 199 H (65-100) mg/dL Calcium 7.5 L (8.4-10.2) mg/dL Calcium panel 04/17/17 Range/Units 05:22 Calcium 7.5 L (8.4-10.2) mg/dL Pituitary panel 04/17/17 Range/Units 05:22 Sodium 139 (137-145) mmol/L Potassium 3.4 L (3.6-5.0) mmol/L Chloride 104.0 (98-107) mmol/L Carbon Dioxide 19 L (22-30) mmol/L BUN 2 L (7-17) mg/dL Creatinine 0.3 L (0.7-1.2) mg/dL Glucose 199 H (65-100) mg/dL Calcium 7.5 L (8.4-10.2) mg/dL Adrenal panel 04/17/17 Range/Units 05:22 Sodium 139 (137-145) mmol/L Potassium 3.4 L (3.6-5.0) mmol/L Chloride 104.0 (98-107) mmol/L Carbon Dioxide 19 L (22-30) mmol/L BUN 2 L (7-17) mg/dL Creatinine 0.3 L (0.7-1.2) mg/dL Glucose 199 H (65-100) mg/dL Calcium 7.5 L (8.4-10.2) mg/dL
--- NOTE | 2017-04-17 15:03 | Discharge Summary ---
Providers - Providers Date of Admission: 04/14/17 02:20 Date of discharge: 04/17/17 Attending physician: JOSE ALBERTO HAWK 04/14/17 16:13 Consult to Physician [CONS] Urgent Consulting Provider: HUMBERTO ALMENDAREZ Reason For Exam: ICU ADMISSION Place consult to:: DR ALMENDAREZ Notified:: YES Comment:: DR MARIE SPOKE WITH DR ALMENDAREZ 04/15/17 12:03 Consult to Wound/ET Nurse [CONS] Routine Reason For Exam: wound eval Primary care physician: [employer] Hospitalization Condition: Stable Hospital course: Sepsis, present on admission - Due to perirectal abscess - Status post I&D on 04/14/17 - Continue IV antibiotics Pararectal abscess - Status post I&D on 04/14/17 - Continue IV antibiotics - We'll follow final culture - Patient is still high spiking fever - Patient on Zosyn and vancomycin Acute blood loss anemia - We will monitor H&H - Expected outcome following surgical debridement - We'll transfuse 2 units PRBC today Diabetes type 2 - Continue ADA diet and sliding scale of insulin Coronary artery disease - Resume home meds - on held plavix for now due to active bleeding - consulted cardiology DVT prophylaxis, placed on SCD Brief history: 46-year-old woman with a history of diabetes, coronary artery disease presented to the emergency room with complaints of worsening burning and pain in the left perirectal area. She was seen here 3 days ago for the same symptoms, and was placed on clindamycin. Her symptoms have worsened so she returned to the emergency room for evaluation. Disposition: TO HOME OR SELFCARE Time spent for discharge: 32 minutes Core Measure Documentation - Palliative Care Palliative Care/ Comfort Measures: Not Applicable - Core Measures Any of the following diagnoses?: history only Exam - Physical Exam Narrative exam: Gen. appearance: Patient lying in bed, no apparent distress HEENT: Normocephalic, atraumatic, pupils equally round and reactive to light, extraocular movement intact, and no sclericterus,. No JVD or thyromegaly or nodule,neck supple, no carotid bruit ,mucous membranes moist, no exudate or erythema Heart: S1, S2, regular rate and rhythm Lungs: Clear to auscultation bilaterally, breathing comfortable Abdomen: Positive bowel sounds, nontender, nondistended, no organomegaly Extremity: No edema, cyanosis, clubbing Skin: perirectal area with dressing which is socked with no blood Neuro: Oriented 3, motor and sensory intact psych ; appears depressed - Constitutional Vitals: Temp Pulse Resp BP Pulse Ox 98.2 F 90 20 129/77 99 04/17/17 07:10 04/17/17 07:10 04/17/17 07:10 04/17/17 07:10 04/17/17 01:49 Plan Diet: low cholesterol, low salt, diabetic Follow up with: PRIMARY CARE, [Primary Care Provider] - 3-5 Days
[2017-04-17 15:50] LABS: Hematocrit 25.8 % (30.3-42.9); Hemoglobin 8.5 gm/dl (10.1-14.3)
[2017-04-17 16:29] VITALS: BP 141/83
== END 2017-04-17 16:54 | disposition home or self-care (01) | DRG 872 ==
LOC: ED 21:19 → 3A 04-14 02:20 → 2B-SURG 04-14 14:04 → CC1 04-14 17:57 → 2B-SURG 04-15 14:50
PROVIDERS: ADMIT Internal Medicine; ATTEND Internal Medicine
PROC: 0DBP8ZZ Excision of Rectum, Via Natural or Artificial Opening Endoscopic (ICD-10-PCS; principal; 2017-04-14)
PROC: 30233N1 Transfusion of Nonautologous Red Blood Cells into Peripheral Vein, Percutaneous Approach (ICD-10-PCS; 2017-04-14)
PROC: 3E0234Z Introduction of Serum, Toxoid and Vaccine into Muscle, Percutaneous Approach (ICD-10-PCS; 2017-04-14)
DX: A41.9 Sepsis, unspecified organism (principal); K61.1 Rectal abscess; D62 Acute posthemorrhagic anemia; K21.9 Gastro-esophageal reflux disease without esophagitis; E11.9 Type 2 diabetes mellitus without complications; I25.10 Atherosclerotic heart disease of native coronary artery without angina pectoris; E66.09 Other obesity due to excess calories; Z98.891 History of uterine scar from previous surgery; Z98.61 Coronary angioplasty status; Z82.49 Family history of ischemic heart disease and other diseases of the circulatory system; Z83.3 Family history of diabetes mellitus; Z68.35 Body mass index [BMI] 35.0-35.9, adult
CPT/HCPCS: 36415; 80048; 82140; 82962; 83036; 85014; 85018; 85025; 85027; 85610; 85730; 86850; 86900; 86901; 86920; 87040; 87075; 87116; 88304; 88305; 90732; 93005; 93010; 96365; 96375; A4649; A9270-GY; J1100; J1170; J1650; J1815; J2250; J2270; J2405; J2543; J2597; J3010; J3370; J3430; J7030; J7040; J7050; P9016

== ENCOUNTER 2017-04-20 18:06 | Emergency (ER) | payer SELFPAY ==
--- NOTE | 2017-04-20 21:40 | XRay Report ---
FINAL REPORT PROCEDURE: XR NECK SOFT TISSUE TECHNIQUE: Two views of the soft tissues of the neck are obtained HISTORY: POSSIBLE PIECE OF MEAT IN THROAT COMPARISON: No prior studies are available for comparison. FINDINGS: Mild anterior cervical osteophytes are seen at C4-5 and C5-6. Mild calcification is seen in the anterior longitudinal ligament at C5-6. Epiglottis appears normal in size. No obvious foreign body is identified. No tracheal deviation is seen. IMPRESSION: No foreign body is seen. CT of the neck may be useful if clinical suspicion persists for foreign body.
--- NOTE | 2017-04-20 23:24 | Emergency Department Report ---
HPI - General Chief Complaint: Skin/Abscess/Foreign Body Time Seen by Provider: 04/20/17 23:06 - HPI HPI: Room 31 The pt is a 46 y/o F p/w a CC of dysphagia. The pt states she underwent GETA last week for an I&D of an abscess on her buttocks. The pt described having a sore throat after that procedure. Yesterday the pt was eating liver and states it feels as though the food became stuck in her esophagus. Pt states whenever she attempts to eat or even drink H2O it comes right back up. Pt denies previous episodes of the same. ED Past Medical Hx - Past Medical History Previous Medical History?: Yes Hx Hypertension: Yes Hx Heart Attack/AMI: Yes Hx Diabetes: Yes Hx GERD: Yes Hx Asthma: Yes (last inhaler 2 months ago) - Surgical History Past Surgical History?: Yes Hx Coronary Stent: Yes Additional Surgical History: , stent - Family History Family history: no significant - Social History Smoking Status: Never Smoker Substance Use Type: None - Medications Home Medications: Home Medications Medication Instructions Recorded Confirmed Last Taken Type Clindamycin [Clindamycin CAP] 300 mg PO Q8H #30 cap 04/11/17 04/14/17 Unknown Rx Clopidogrel [Plavix] 75 mg PO QDAY 04/11/17 04/14/17 Unknown History Ondansetron [Zofran ODT TAB] 4 mg PO Q8HR PRN #14 tab.rapdis 04/11/17 04/14/17 Unknown Rx metFORMIN [Glucophage] 500 mg PO BID 04/11/17 04/14/17 Unknown History traMADol [Ultram 50 MG tab] 50 mg PO Q6HR PRN #14 tablet 04/11/17 04/14/17 Unknown Rx AtorvaSTATin [Lipitor] 40 mg PO QHS #30 tablet 04/17/17 Unknown Rx Insulin Aspart Prot/Aspart(Nf) 20 units SQ DAILY 30 Days 04/17/17 Unknown Rx [NovoLOG Mix 70/30 VIAL] Ondansetron [Zofran ODT TAB] 8 mg PO Q8HR #20 tab.rapdis 04/21/17 Unknown Rx Promethazine [Phenergan] 25 mg [place] Q6HR PRN #5 supp.rect 04/21/17 Unknown Rx ED Review of Systems ROS: Stated complaint: CANT SWALLOW/DRINK/COMES BACK UP Other details as noted in HPI Comment: All other systems reviewed and negative Constitutional: denies: chills, fever Eyes: denies: eye pain, eye discharge, vision change ENT: denies: ear pain, throat pain Respiratory: denies: cough, shortness of breath, wheezing Cardiovascular: denies: chest pain, palpitations Endocrine: no symptoms reported Gastrointestinal: nausea, vomiting, other (dysphagia). denies: abdominal pain Genitourinary: denies: urgency, dysuria, discharge Musculoskeletal: denies: back pain, joint swelling, arthralgia Skin: denies: rash, lesions Neurological: denies: headache, weakness, paresthesias Psychiatric: denies: anxiety, depression Hematological/Lymphatic: denies: easy bleeding, easy bruising Physical Exam - Physical Exam Vital Signs: Vital Signs 04/20/17 04/20/17 19:24 23:15 Temperature 98.5 F Pulse Rate 98 H Respiratory 18 18 Rate Blood Pressure 153/83 O2 Sat by Pulse 99 Oximetry Physical Exam: GEN: WD, WN F lying on stretcher not appearing to be in acute distress. HEENT: normocephalic, atraumatic, no stridor. No fb seen in OP PULM: CTA B CV: rrr, no m/r/g ABD: s, nt, nd Neuro: GCS 15 Ext: no deformity ED Course Vital Signs 04/20/17 04/20/17 19:24 23:15 Temperature 98.5 F Pulse Rate 98 H Respiratory 18 18 Rate Blood Pressure 153/83 O2 Sat by Pulse 99 Oximetry - Reevaluation(s) Reevaluation #1: 04/21/17 01:24 offered admission to the hospital for further evaluation but pt refuses. Strong warnings given ED Medical Decision Making - Radiology Data Radiology results: report reviewed (lat neck xray, esophogram), image reviewed ( lat neck xray, esophogram) interpreted by me: lat neck xray- no fb seen esophogram- contrast passes to stomach lat neck xray, (see report) esophogram (read by radiologist) unremarkable - Differential Diagnosis food impaction, dysphagia, gastritis Critical care attestation.: If time is entered above; I have spent that time in minutes in the direct care of this critically ill patient, excluding procedure time. ED Disposition Clinical Impression: Dysphagia Disposition: -01 TO HOME OR SELFCARE Is pt being admited?: No Does the pt Need Aspirin: No Condition: Stable Instructions: Barium Swallow (ED), Chronic Dysphagia (ED) Prescriptions: Ondansetron [Zofran ODT TAB] 8 mg PO Q8HR #20 tab.rapdis Promethazine [Phenergan] 25 mg [place] Q6HR PRN #5 supp.rect PRN Reason: Vomiting Referrals: PRIMARY CARE, [Primary Care Provider] - 3-5 Days VINH NAYLOR MD [Staff Physician] - [facility] (Dr Naylor is a costume draper. Please follow up with him for further evaluation) Time of Disposition: 01:24
--- NOTE | 2017-04-21 00:58 | Fluoroscopy Report ---
FINAL REPORT EXAM: FL BARIUM SWALLOW (ESOPHOGRAM) HISTORY: unable to swallow food or liquids TECHNIQUE: Frontal and lateral view(s) of chest after after swallowing barium oral contrast. PRIORS: None. FINDINGS: Esophagus diffusely opacified and shows normal distension and contour from hypopharynx to EG junction. No apparent or significant filling defects, strictures or evidence of extravasation. Cardiac and mediastinal silhouette within normal limits. Visualized lungs grossly clear. No apparent pneumothorax. IMPRESSION: 1. Unremarkable.
[2017-04-21] MEDS ORDERED: ZOFRAN IV ONE (01:13)
[2017-04-21] MEDS ORDERED: NACL 0.9% 1000 ML 1,000 ML IV ONE (01:13)
[2017-04-21 01:52] VITALS: BP 149/86
== END 2017-04-21 01:52 | disposition home or self-care (01) ==
LOC: ED 18:06
DX: R13.10 Dysphagia, unspecified (principal); I10 Essential (primary) hypertension; I25.2 Old myocardial infarction; E11.9 Type 2 diabetes mellitus without complications; K21.9 Gastro-esophageal reflux disease without esophagitis; J45.909 Unspecified asthma, uncomplicated; Z95.1 Presence of aortocoronary bypass graft; Z79.4 Long term (current) use of insulin
CPT/HCPCS: 70360; 74220; 99283; J2405; J7030

== ENCOUNTER 2019-01-30 07:22 | Emergency (ER) | payer OTHER ==
[2019-01-30 07:37] VITALS: BP 131/86
[2019-01-30] MEDS ORDERED: XYLOCAINE 1% MPF 5 mL INFILTRATI ONE (08:45)
--- NOTE | 2019-01-30 08:48 | Emergency Department Report ---
Abscess Boil HPI - HPI Chief Complaint: Skin/Abscess/Foreign Body Stated Complaint: ABCESS NEAR VAGINA/DIFFICULTY IN URINATING Time Seen by Provider: 01/30/19 08:39 Duration: 3 Days Location: Perianal Severity: Moderate History: Yes Pain, Yes Previous History, No Fever, No Purulent Drainage, No Numbness, No Foreign Body, No Insect Bite HPI: This is a 48-year-old female that presents to the emergency room with an abscess to genital area for 3 days. Past medical history of hypertension, hyperlipidemia, diabetes type 2, and OH 2 with 5 stents placed. Patient reports prior history of abscess and usually have to have them drained. States this adbscess drained purulent discharge 2 days ago but remains painful. Home Medications: Home Medications Medication Instructions Recorded Confirmed Last Taken Clopidogrel [Plavix] 75 mg PO QDAY 04/11/17 04/14/17 Unknown metFORMIN [Glucophage] 500 mg PO BID 04/11/17 04/14/17 Unknown Previous Rx's Medication Instructions Recorded Last Taken Type Clindamycin [Clindamycin CAP] 300 mg PO Q8H #30 cap 04/11/17 Unknown Rx Ondansetron [Zofran ODT TAB] 4 mg PO Q8HR PRN #14 tab.rapdis 04/11/17 Unknown Rx traMADol [Ultram 50 MG tab] 50 mg PO Q6HR PRN #14 tablet 04/11/17 Unknown Rx AtorvaSTATin [Lipitor] 40 mg PO QHS #30 tablet 04/17/17 Unknown Rx Insulin Aspart Prot/Aspart(Nf) 20 units SQ DAILY 30 Days units 04/17/17 Unknown Rx [NovoLOG Mix 70/30 VIAL] Ondansetron [Zofran ODT TAB] 8 mg PO Q8HR #20 tab.rapdis 04/21/17 Unknown Rx Promethazine [Phenergan] 25 mg [place] Q6HR PRN #5 supp.rect 04/21/17 Unknown Rx Acetaminophen [Tylenol Arthritis] 650 mg PO Q6HR PRN #30 tablet.er 07/05/18 Unknown Rx Ibuprofen [Motrin] 600 mg PO Q8H PRN #30 tablet 07/05/18 Unknown Rx Nitrofurantoin [place]/M-Cryst 100 mg PO Q12HR #14 capsule 07/05/18 Unknown Rx [Macrobid CAP] Ondansetron [Zofran Odt] 4 mg PO Q8HR PRN #20 tab.rapdis 07/05/18 Unknown Rx Ibuprofen [Motrin 600 MG tab] 600 mg PO Q8H PRN #20 tablet 01/30/19 Unknown Rx Sulfamethoxazole/Trimethoprim 1 each PO BID #20 tablet 01/30/19 Unknown Rx [Bactrim DS TAB] Allergies/Adverse Reactions: Allergies Allergy/AdvReac Type Severity Reaction Status Date / Time No Known Allergies Allergy Unverified 10/13/13 06:43 ED Review of Systems ROS: Stated complaint: ABCESS NEAR VAGINA/DIFFICULTY IN URINATING Other details as noted in HPI Constitutional: denies: chills, fever Respiratory: denies: cough, shortness of breath, wheezing Cardiovascular: denies: chest pain, palpitations Gastrointestinal: denies: abdominal pain, nausea, diarrhea Genitourinary: denies: discharge Musculoskeletal: denies: joint swelling, arthralgia Skin: lesions (abscess genital region). denies: rash Neurological: denies: headache, weakness, paresthesias Psychiatric: denies: anxiety, depression ED Past Medical Hx - Past Medical History Previous Medical History?: Yes Hx Hypertension: Yes Hx Heart Attack/AMI: Yes Hx Diabetes: Yes Hx GERD: Yes Hx Asthma: Yes (last inhaler 2 months ago) Hx COPD: No - Surgical History Past Surgical History?: Yes Hx Coronary Stent: Yes Hx Open Heart Surgery: No Additional Surgical History: , stent - Social History Smoking Status: Never Smoker Substance Use Type: None - Medications Home Medications: Home Medications Medication Instructions Recorded Confirmed Last Taken Type Clindamycin [Clindamycin CAP] 300 mg PO Q8H #30 cap 04/11/17 04/14/17 Unknown Rx Clopidogrel [Plavix] 75 mg PO QDAY 04/11/17 04/14/17 Unknown History Ondansetron [Zofran ODT TAB] 4 mg PO Q8HR PRN #14 tab.rapdis 04/11/17 04/14/17 Unknown Rx metFORMIN [Glucophage] 500 mg PO BID 04/11/17 04/14/17 Unknown History traMADol [Ultram 50 MG tab] 50 mg PO Q6HR PRN #14 tablet 04/11/17 04/14/17 Unknown Rx AtorvaSTATin [Lipitor] 40 mg PO QHS #30 tablet 08/28/17 Unknown Rx Insulin Aspart Prot/Aspart(Nf) 20 units SQ DAILY 30 Days units 04/17/17 Unknown Rx [NovoLOG Mix 70/30 VIAL] Ondansetron [Zofran ODT TAB] 8 mg PO Q8HR #20 tab.rapdis 04/21/17 Unknown Rx Promethazine [Phenergan] 25 mg [place] Q6HR PRN #5 supp.rect 04/21/17 Unknown Rx Acetaminophen [Tylenol Arthritis] 650 mg PO Q6HR PRN #30 tablet.er 07/05/18 Unknown Rx Ibuprofen [Motrin] 600 mg PO Q8H PRN #30 tablet 07/05/18 Unknown Rx Nitrofurantoin [place]/M-Cryst 100 mg PO Q12HR #14 capsule 07/05/18 Unknown Rx [Macrobid CAP] Ondansetron [Zofran Odt] 4 mg PO Q8HR PRN #20 tab.rapdis 07/05/18 Unknown Rx Ibuprofen [Motrin 600 MG tab] 600 mg PO Q8H PRN #20 tablet 01/30/19 Unknown Rx Sulfamethoxazole/Trimethoprim 1 each PO BID #20 tablet 01/30/19 Unknown Rx [Bactrim DS TAB] ED Abscess Boil Physical Exam - Exam General: Vital signs noted. No distress. Alert and acting appropriately. Front/Back of Body, Lg (Color): 1 - 2 centimeter fluctuant nodule 2 months pubis, tenderness, surrounding cellulitis, no active drainage. Size: 2 cm Exam: Yes Tenderness, Yes Normal Neurologic Exam, Yes Normal Circulation, No Fluctuance, No Surrounding Cellulites/Erythema, No Lymphangitis, No Crepitation, No Heart Murmur I & D Note - I & D Note I & D Note: The area was prepared and draped in the usual, sterile manner. The site was anesthetized with 1% lidocaine without epinephrine. A linear incision along the local skin lines was made and the purulent material expressed. The abcess was explored thoroughly and sequestered pockets were opened. Bleeding was minimal. Packing: idodoform. Followup: The patient tolerated the procedure well without complications. Standard post-procedure care was explained and return precautions are given. ED Course Vital Signs 01/30/19 07:35 Temperature 98.4 F Pulse Rate 85 Respiratory 18 Rate Blood Pressure 131/86 O2 Sat by Pulse 100 Oximetry Critical care attestation.: If time is entered above; I have spent that time in minutes in the direct care of this critically ill patient, excluding procedure time. ED Medical Decision Making - Medical Decision Making This is a 48 y.o. female that presents with a painful abscess to months pubis for 3 days. Past medical history of hypertension, hyperlipidemia, diabetes type 2, OH 2 with 5 stents placed. Patient is stable and examined by me. She reports prior history of multiple abscesses. No acute signs of distress noted. I&D performed, refer to note. Discussed plan to start bactrim DS and ibuprofen with patient. Educated patient on follow up plan to have packing removed and wound reassessed in 2-3 days. Patient agrees to ED plan of care. Discharged home and follow up with PCP in 2-3 days. ED Disposition Clinical Impression: Abscess Disposition: - TO HOME OR SELFCARE Is pt being admited?: No Does the pt Need Aspirin: No Condition: Stable Instructions: Abscess Incision and Drainage (ED), Abscess (ED) Additional Instructions: Keep packing in place for 2-3 days. Return to ER or f/u with PCP to have packing removed and wound reassessed. Complete full round of bactrim DS antibiotic as prescribed. Follow up with PCP or ER in 2-3 days. Return to ER if foul smelling discharge, swelling, or severe pain to wound. Prescriptions: Sulfamethoxazole/Trimethoprim [Bactrim DS TAB] 1 each PO BID #20 tablet Ibuprofen [Motrin 600 MG tab] 600 mg PO Q8H PRN #20 tablet PRN Reason: Pain Referrals: DEANGELO COLVIN MD [Primary Care Provider] - 3-[address] [facility] [Provider Group] - 3-5 Days [facility] [Provider Group] - 3-5 Days REAGAN EVANS MD [Staff Physician] - 3-5 Days Forms: Work/School Release Form(ED) Time of Disposition: 09:33
== END 2019-01-30 09:48 | disposition home or self-care (01) ==
LOC: ED 07:22
DX: L02.215 Cutaneous abscess of perineum (principal); I10 Essential (primary) hypertension; I25.2 Old myocardial infarction; E11.9 Type 2 diabetes mellitus without complications; K21.9 Gastro-esophageal reflux disease without esophagitis; J45.909 Unspecified asthma, uncomplicated; Z95.1 Presence of aortocoronary bypass graft; Z79.4 Long term (current) use of insulin; Z79.899 Other long term (current) drug therapy
CPT/HCPCS: 99282

== ENCOUNTER 2019-03-11 02:21 | Emergency (ER) | payer OTHER ==
[2019-03-11 03:01] LABS: HCG Qualitative,Urine Negative (Negative)
[2019-03-11 03:03] LABS: Bilirubin,Urine NEG (Negative); Blood,Urine LG (Negative); Color,Urine Yellow (Yellow); Mucus,Urine 1+ /HPF; Urobilinogen,Urine < 2.0 mg/dL (<2.0)
--- NOTE | 2019-03-11 03:28 | Emergency Department Report ---
ED Female HPI - General Chief complaint: Urogenital-Female Stated complaint: PAINFUL URINATION Time Seen by Provider: 03/11/19 02:48 Source: patient Mode of arrival: Ambulatory Limitations: No Limitations - History of Present Illness Initial comments: Patient is a 48-year-old female who presents the emergency room with complaints of urinary frequency that began 2 days ago. she states she has associated dysuria and frequency with only small amounts of urine output. She denies any nausea, vomiting, fever. She does not report any abdominal pain or vaginal complaints. Past medical history of HTN, DM, CAD. LNMP March 07. she denies any allergies to medications. she states when she receives abx therapy she usually gets a yeast infection and requests something prophylactically. - Related Data Home Medications Medication Instructions Recorded Confirmed Last Taken Clopidogrel [Plavix] 75 mg PO QDAY 04/11/17 04/14/17 Unknown metFORMIN [Glucophage] 500 mg PO BID 04/11/17 04/14/17 Unknown Previous Rx's Medication Instructions Recorded Last Taken Type Clindamycin [Clindamycin CAP] 300 mg PO Q8H #30 cap 04/11/17 Unknown Rx Ondansetron [Zofran ODT TAB] 4 mg PO Q8HR PRN #14 tab.rapdis 04/11/17 Unknown Rx traMADol [Ultram 50 MG tab] 50 mg PO Q6HR PRN #14 tablet 04/11/17 Unknown Rx AtorvaSTATin [Lipitor] 40 mg PO QHS #30 tablet 04/17/17 Unknown Rx Insulin Aspart Prot/Aspart(Nf) 20 units SQ DAILY 30 Days units 04/17/17 Unknown Rx [NovoLOG Mix 70/30 VIAL] Ondansetron [Zofran ODT TAB] 8 mg PO Q8HR #20 tab.rapdis 04/21/17 Unknown Rx Promethazine [Phenergan] 25 mg [place] Q6HR PRN #5 supp.rect 04/21/17 Unknown Rx Acetaminophen [Tylenol Arthritis] 650 mg PO Q6HR PRN #30 tablet.er 07/05/18 Unknown Rx Ibuprofen [Motrin] 600 mg PO Q8H PRN #30 tablet 07/05/18 Unknown Rx Nitrofurantoin [place]/M-Cryst 100 mg PO Q12HR #14 capsule 07/05/18 Unknown Rx [Macrobid CAP] Ondansetron [Zofran Odt] 4 mg PO Q8HR PRN #20 tab.rapdis 07/05/18 Unknown Rx Ibuprofen [Motrin 600 MG tab] 600 mg PO Q8H PRN #20 tablet 01/30/19 Unknown Rx Sulfamethoxazole/Trimethoprim 1 each PO BID #20 tablet 01/30/19 Unknown Rx [Bactrim DS TAB] Fluconazole [Diflucan TAB] 150 mg PO ONCE #1 tablet 03/11/19 Unknown Rx cephALEXin [Keflex] 500 mg PO BID 7 Days #14 cap 03/11/19 Unknown Rx Allergies Allergy/AdvReac Type Severity Reaction Status Date / Time No Known Allergies Allergy Verified 03/11/19 02:25 ED Review of Systems ROS: Stated complaint: PAINFUL URINATION Other details as noted in HPI Comment: All other systems reviewed and negative ED Past Medical Hx - Past Medical History Previous Medical History?: Yes Hx Hypertension: Yes Hx Heart Attack/AMI: Yes Hx Diabetes: Yes Hx GERD: Yes Hx Asthma: Yes (last inhaler 2 months ago) Hx COPD: No - Surgical History Past Surgical History?: Yes Hx Coronary Stent: Yes Hx Open Heart Surgery: No Additional Surgical History: , stent - Social History Smoking Status: Never Smoker Substance Use Type: None - Medications Home Medications: Home Medications Medication Instructions Recorded Confirmed Last Taken Type Clindamycin [Clindamycin CAP] 300 mg PO Q8H #30 cap 04/11/17 04/14/17 Unknown Rx Clopidogrel [Plavix] 75 mg PO QDAY 04/11/17 04/14/17 Unknown History Ondansetron [Zofran ODT TAB] 4 mg PO Q8HR PRN #14 tab.rapdis 04/11/17 04/14/17 Unknown Rx metFORMIN [Glucophage] 500 mg PO BID 04/11/17 04/14/17 Unknown History traMADol [Ultram 50 MG tab] 50 mg PO Q6HR PRN #14 tablet 04/11/17 04/14/17 Unknown Rx AtorvaSTATin [Lipitor] 40 mg PO QHS #30 tablet 04/17/17 Unknown Rx Insulin Aspart Prot/Aspart(Nf) 20 units SQ DAILY 30 Days units 04/17/17 Unknown Rx [NovoLOG Mix 70/30 VIAL] Ondansetron [Zofran ODT TAB] 8 mg PO Q8HR #20 tab.rapdis 04/21/17 Unknown Rx Promethazine [Phenergan] 25 mg [place] Q6HR PRN #5 supp.rect 04/21/17 Unknown Rx Acetaminophen [Tylenol Arthritis] 650 mg PO Q6HR PRN #30 tablet.er 07/05/18 Unknown Rx Ibuprofen [Motrin] 600 mg PO Q8H PRN #30 tablet 07/05/18 Unknown Rx Nitrofurantoin [place]/M-Cryst 100 mg PO Q12HR #14 capsule 07/05/18 Unknown Rx [Macrobid CAP] Ondansetron [Zofran Odt] 4 mg PO Q8HR PRN #20 tab.rapdis 07/05/18 Unknown Rx Ibuprofen [Motrin 600 MG tab] 600 mg PO Q8H PRN #20 tablet 01/30/19 Unknown Rx Sulfamethoxazole/Trimethoprim 1 each PO BID #20 tablet 01/30/19 Unknown Rx [Bactrim DS TAB] Fluconazole [Diflucan TAB] 150 mg PO ONCE #1 tablet 03/11/19 Unknown Rx cephALEXin [Keflex] 500 mg PO BID 7 Days #14 cap 03/11/19 Unknown Rx ED Physical Exam - General Limitations: No Limitations General appearance: alert, in no apparent distress - Head Head exam: Present: atraumatic, normocephalic - Eye Eye exam: Present: normal appearance - Respiratory Respiratory exam: Present: normal lung sounds bilaterally. Absent: respiratory distress, wheezes, rales, rhonchi, stridor, accessory muscle use, decreased breath sounds, prolonged expiratory - Cardiovascular Cardiovascular Exam: Present: regular rate, normal rhythm, normal heart sounds. Absent: systolic murmur, diastolic murmur, rubs, gallop - GI/Abdominal GI/Abdominal exam: Present: soft, normal bowel sounds. Absent: distended, tenderness, guarding, rebound, rigid - Back Exam Back exam: Absent: CVA tenderness (R), CVA tenderness (L) - Neurological Exam Neurological exam: Present: alert, oriented X3 - Psychiatric Psychiatric exam: Present: normal affect, normal mood - Skin Skin exam: Present: warm, dry, intact ED Course Vital Signs 03/11/19 03/11/19 02:24 03:44 Temperature 97.5 F L 98.1 F Pulse Rate 97 H 86 Respiratory 18 16 Rate Blood Pressure 132/79 Blood Pressure 112/63 [Right] O2 Sat by Pulse 96 98 Oximetry ED Medical Decision Making - Lab Data Lab Results 03/11/19 Range/Units 02:33 Urine Color Yellow (Yellow) Urine Turbidity Cloudy (Clear) Urine pH 5.0 (5.0-7.0) Ur Specific [place] 1.024 (1.003-1.030) Urine Protein 30 mg/dl (Negative) mg/dL Urine Glucose (UA) >=500 (Negative) mg/dL Urine Ketones Neg (Negative) mg/dL Urine Blood Lg (Negative) Urine Nitrite Neg (Negative) Ur Reducing Substances Not Reportable Urine Bilirubin Neg (Negative) Urine Ictotest Not Reportable Urine Urobilinogen < 2.0 (<2.0) mg/dL Ur Leukocyte Esterase Lg (Negative) Urine WBC (Auto) 70.0 H (0.0-6.0) /HPF Urine RBC (Auto) 25.0 (0.0-6.0) /HPF U Epithel Cells (Auto) 4.0 (0-13.0) /HPF Urine Mucus 1+ /HPF Urine HCG, Qual Negative (Negative) - Medical Decision Making Patient is a 48-year-old female who presents the emergency room with complaints of urinary frequency that began 2 days ago. she states she has associated dysuria and frequency with only small amounts of urine output. She denies any nausea, vomiting, fever. She does not report any abdominal pain or vaginal complaints. Past medical history of HTN, DM, CAD. LNMP March 07. she denies a [place] allergies to medications. she states when she receives abx therapy she usually gets a yeast infection and requests something prophylactically. vitals are normal. UA shows evidence of UTI. pt given prescription for abx and fluconazle as prophylaxis. advised pt to please take medication as prescribed. drink plenty of water. follow up with a primary care doctor in the next 2-3 days. return to the emergency room for any new or worsening symptoms. Critical care attestation.: If time is entered above; I have spent that time in minutes in the direct care of this critically ill patient, excluding procedure time. ED Disposition Clinical Impression: UTI (urinary tract infection) Qualifiers: Urinary tract infection type: acute cystitis Hematuria presence: with hematuria Qualified Code(s): N30.01 - Acute cystitis with hematuria Disposition: TO HOME OR SELFCARE Is pt being admited?: No Does the pt Need Aspirin: No Condition: Stable Instructions: Urinary Tract Infection in Women (ED) Additional Instructions: please take medication as prescribed. drink plenty of water. follow up with a primary care doctor in the next 2-3 days. return to the emergency room for any new or worsening symptoms. Prescriptions: Fluconazole [Diflucan TAB] 150 mg PO ONCE #1 tablet cephALEXin [Keflex] 500 mg PO BID 7 Days #14 cap Referrals: KORI SEAY MD [Primary Care Provider] - 2-3 Days Time of Disposition: 03:28 Print Language: GREEK
[2019-03-11 03:47] VITALS: BP 112/63
== END 2019-03-11 03:44 | disposition home or self-care (01) ==
LOC: ED 02:21
DX: N39.0 Urinary tract infection, site not specified (principal); I10 Essential (primary) hypertension; I25.2 Old myocardial infarction; E11.9 Type 2 diabetes mellitus without complications; K21.0 Gastro-esophageal reflux disease with esophagitis; I25.10 Atherosclerotic heart disease of native coronary artery without angina pectoris; J45.909 Unspecified asthma, uncomplicated; Z95.1 Presence of aortocoronary bypass graft; Z79.4 Long term (current) use of insulin; Z79.899 Other long term (current) drug therapy
CPT/HCPCS: 81001; 81025; 87076; 87086; 87186; 99283

== ENCOUNTER 2019-06-07 18:53 | Emergency (ER) | payer MEDICAID, OTHER ==
--- NOTE | 2019-06-07 19:27 | Event Note ---
ED Screening Note Date of service: 06/07/19 Time: 19:26 ED Screening Note: Pt complains of low back pain x 7 days. Denies injury. +dysuria x 4 days. Reports kidney infection that required admission 1 month ago at [place]. States pain is similar This initial assessment/diagnostic orders/clinical plan/treatment(s) is/are subject to change based on patients health status, clinical progression and re- assessment by fellow clinical providers in the ED. Further treatment and workup at subsequent clinical providers discretion. Patient/guardian urged not to elope from the ED as their condition may be serious if not clinically assessed and managed. Initial orders include: BMP CBC UA
[2019-06-07 20:15] LABS: Bacteria,Urine 4+ /HPF (Negative); Bilirubin,Urine NEG (Negative); Blood,Urine SM (Negative); Color,Urine Yellow (Yellow); Mucus,Urine FEW /HPF; Urobilinogen,Urine < 2.0 mg/dL (<2.0)
[2019-06-07 20:41] LABS: Basophils # (Auto) 0.1 K/mm3 (0.0-0.1); Basophils % (Auto) 1.3 % (0.0-1.8); Eosinophils # (Auto) 0.3 K/mm3 (0.0-0.4); Eosinophils % (Auto) 3.9 % (0.0-4.3); Hematocrit 39.3 % (30.3-42.9); Hemoglobin 12.9 gm/dl (10.1-14.3); Lymphocytes # (Auto) 2.3 K/mm3 (1.2-5.4); Lymphocytes % (Auto) 28.3 % (13.4-35.0); Mean Corpuscular HGB Conc 33 % (30-34); Mean Corpuscular Volume 82 fl (79-97); Monocytes # (Auto) 0.8 K/mm3 (0.0-0.8); Monocytes % (Auto) 10.4 % (0.0-7.3); Platelet Count 288 K/mm3 (140-440); Red Blood Count 4.77 M/mm3 (3.65-5.03); Red Cell Distribution Width 15.7 % (13.2-15.2)
[2019-06-07] MEDS ORDERED: TORADOL IV ONE (21:18)
[2019-06-07] MEDS ORDERED: ZOFRAN IV ONE (21:18)
[2019-06-07 21:21] LABS: BUN/Creatinine Ratio 36; Blood Urea Nitrogen 18 mg/dL (7-17); Hemolysis Index 5
--- NOTE | 2019-06-07 22:30 | Cat Scan Report ---
CT ABDOMEN AND PELVIS WITHOUT CONTRAST INDICATION / CLINICAL INFORMATION: Abdominal and flank pain. TECHNIQUE: Axial CT images were obtained through the abdomen and pelvis without IV contrast. All CT scans at [facility] location are performed using CT dose reduction for ALARA by means of automated exposure control. COMPARISON: None available. FINDINGS: LOWER CHEST: No significant abnormality. LIVER: No significant abnormality. GALLBLADDER: No significant abnormality. BILE DUCTS: No significant abnormality. PANCREAS: No significant abnormality. SPLEEN: No significant abnormality. ADRENALS: A 2.2 cm soft tissue attenuation nodule adjacent to the right adrenal gland is noted, indet erminate. Left adrenal gland is normal. RIGHT KIDNEY and URETER: No significant abnormality. LEFT KIDNEY and URETER: Coarse calcification approximately 1 cm is noted in the interpolar region cor lydia medially, with adjacent cortical defects suggesting atrophy. No calculus is identified in the col lecting system or ureter. STOMACH and SMALL BOWEL: No significant abnormality. COLON: No significant abnormality. APPENDIX: No significant abnormality. PERITONEUM: No free fluid. No free air. No fluid collection. LYMPH NODES: No adenopathy. AORTA and ARTERIES: Extensive atherosclerosis of the abdominal aorta and visceral arteries, particula rly small renal artery branches and the splenic artery. No aneurysmal dilatation. IVC and VEINS: No significant abnormality. URINARY BLADDER: No significant abnormality. REPRODUCTIVE ORGANS: No significant abnormality. SKELETAL SYSTEM: No significant abnormality. IMPRESSION: 1. No acute finding. 2. Indeterminate 2.2 cm nodule adjacent to the right adrenal gland may further evaluated with adrenal protocol CT or MRI scan as clinically indicated. 3. Coarse cortical calcification in the left kidney. No calculus is identified in the renal collectin g systems or ureters or bladder. Signer Name: Delon Anderson MD Signed: 06/07/2019 10:26 PM Workstation Name: [id number]
--- NOTE | 2019-06-07 23:25 | Emergency Department Report ---
ED Abdominal Pain HPI - General Chief Complaint: Back Pain/Injury Stated Complaint: LOWER BACK PAIN Time Seen by Provider: 06/07/19 21:16 Source: patient Mode of arrival: Ambulatory Limitations: No Limitations - History of Present Illness Initial Comments: Pt is a 48 y/o female with hx of recurrent UTI, and renal cyst. States she was admitted 1 month ago for same tx with cipro. Pt states symptoms did get better however have return 7 days ago. Symptoms now include urinary frequency , urgency and bilat flank pain with occassional nausea. There is no vomiting, no fever or chills, MD Complaint: flank pain Onset/Timin -: week(s) Location: L flank, R flank Radiation: suprapubic Migration to: no migration Severity scale (0 -10): 3 Quality: aching Consistency: intermittent Improves With: nothing Worsens With: other (voiding) Associated Symptoms: nausea, dysuria. denies: vomiting, fever, chills, melena - Related Data LMP (females 10-50): other (post menapu) Home Medications Medication Instructions Recorded Confirmed Last Taken Clopidogrel [Plavix] 75 mg PO QDAY 04/11/17 04/14/17 Unknown metFORMIN [Glucophage] 500 mg PO BID 04/11/17 04/14/17 Unknown Previous Rx's Medication Instructions Recorded Last Taken Type Clindamycin [Clindamycin CAP] 300 mg PO Q8H #30 cap 04/11/17 Unknown Rx Ondansetron [Zofran ODT TAB] 4 mg PO Q8HR PRN #14 tab.rapdis 04/11/17 Unknown Rx traMADol [Ultram 50 MG tab] 50 mg PO Q6HR PRN #14 tablet 04/11/17 Unknown Rx AtorvaSTATin [Lipitor] 40 mg PO QHS #30 tablet 04/17/17 Unknown Rx Insulin Aspart Prot/Aspart(Nf) 20 units SQ DAILY 30 Days units 04/17/17 Unknown Rx [NovoLOG Mix 70/30 VIAL] Ondansetron [Zofran ODT TAB] 8 mg PO Q8HR #20 tab.rapdis 04/21/17 Unknown Rx Promethazine [Phenergan] 25 mg NV Q6HR PRN #5 supp.rect 04/21/17 Unknown Rx Acetaminophen [Tylenol Arthritis] 650 mg PO Q6HR PRN #30 tablet.er 07/05/18 Unknown Rx Ibuprofen [Motrin] 600 mg PO Q8H PRN #30 tablet 07/05/18 Unknown Rx Nitrofurantoin Amador/M-Cryst 100 mg PO Q12HR #14 capsule 07/05/18 Unknown Rx [Macrobid CAP] Ondansetron [Zofran Odt] 4 mg PO Q8HR PRN #20 tab.rapdis 07/05/18 Unknown Rx Ibuprofen [Motrin 600 MG tab] 600 mg PO Q8H PRN #20 tablet 01/30/19 Unknown Rx Sulfamethoxazole/Trimethoprim 1 each PO BID #20 tablet 01/30/19 Unknown Rx [Bactrim DS TAB] Fluconazole [Diflucan TAB] 150 mg PO ONCE #1 tablet 03/11/19 Unknown Rx cephALEXin [Keflex] 500 mg PO BID 7 Days #14 cap 03/11/19 Unknown Rx Ketorolac [Toradol] 10 mg PO Q6H PRN #12 tablet 06/07/19 Unknown Rx levoFLOXacin [Levaquin TAB] 500 mg PO QDAY #10 tablet 06/07/19 Unknown Rx Allergies Allergy/AdvReac Type Severity Reaction Status Date / Time No Known Allergies Allergy Verified 03/11/19 02:25 ED Review of Systems ROS: Stated complaint: LOWER BACK PAIN Other details as noted in HPI Constitutional: denies: chills, fever Eyes: denies: eye pain, eye discharge, vision change ENT: denies: ear pain, throat pain Respiratory: denies: cough, shortness of breath, wheezing Cardiovascular: as per HPI Endocrine: no symptoms reported Gastrointestinal: abdominal pain (superpubic ). denies: nausea, vomiting, diarrhea Genitourinary: urgency, dysuria, frequency. denies: hematuria, discharge Musculoskeletal: back pain Skin: denies: rash, lesions Neurological: denies: headache, weakness, paresthesias Psychiatric: denies: anxiety, depression Hematological/Lymphatic: denies: easy bleeding, easy bruising ED Past Medical Hx - Past Medical History Previous Medical History?: Yes Hx Hypertension: Yes Hx Heart Attack/AMI: Yes Hx Diabetes: Yes Hx GERD: Yes Hx Asthma: Yes (last inhaler 2 months ago) Hx COPD: No - Surgical History Past Surgical History?: Yes Hx Coronary Stent: Yes Hx Open Heart Surgery: No Additional Surgical History: , 5 stent - Social History Smoking Status: Never Smoker Substance Use Type: None - Medications Home Medications: Home Medications Medication Instructions Recorded Confirmed Last Taken Type Clindamycin [Clindamycin CAP] 300 mg PO Q8H #30 cap 04/11/17 04/14/17 Unknown Rx Clopidogrel [Plavix] 75 mg PO QDAY 04/11/17 04/14/17 Unknown History Ondansetron [Zofran ODT TAB] 4 mg PO Q8HR PRN #14 tab.rapdis 04/11/17 04/14/17 Unknown Rx metFORMIN [Glucophage] 500 mg PO BID 04/11/17 04/14/17 Unknown History traMADol [Ultram 50 MG tab] 50 mg PO Q6HR PRN #14 tablet 04/11/17 04/14/17 Unknown Rx AtorvaSTATin [Lipitor] 40 mg PO QHS #30 tablet 04/17/17 Unknown Rx Insulin Aspart Prot/Aspart(Nf) 20 units SQ DAILY 30 Days units 04/17/17 Unkn own Rx [NovoLOG Mix 70/30 VIAL] Ondansetron [Zofran ODT TAB] 8 mg PO Q8HR #20 tab.rapdis 04/21/17 Unknown Rx Promethazine [Phenergan] 25 mg NV Q6HR PRN #5 supp.rect 04/21/17 Unknown Rx Acetaminophen [Tylenol Arthritis] 650 mg PO Q6HR PRN #30 tablet.er 07/05/18 Unknown Rx Ibuprofen [Motrin] 600 mg PO Q8H PRN #30 tablet 07/05/18 Unknown Rx Nitrofurantoin [place]/M-Cryst 100 mg PO Q12HR #14 capsule 07/05/18 Unknown Rx [Macrobid CAP] Ondansetron [Zofran Odt] 4 mg PO Q8HR PRN #20 tab.rapdis 07/05/18 Unknown Rx Ibuprofen [Motrin 600 MG tab] 600 mg PO Q8H PRN #20 tablet 01/30/19 Unknown Rx Sulfamethoxazole/Trimethoprim 1 each PO BID #20 tablet 01/30/19 Unknown Rx [Bactrim DS TAB] Fluconazole [Diflucan TAB] 150 mg PO ONCE #1 tablet 03/11/19 Unknown Rx cephALEXin [Keflex] 500 mg PO BID 7 Days #14 cap 03/11/19 Unknown Rx Ketorolac [Toradol] 10 mg PO Q6H PRN #12 tablet 06/07/19 Unknown Rx levoFLOXacin [Levaquin TAB] 500 mg PO QDAY #10 tablet 06/07/19 Unknown Rx ED Physical Exam - General Limitations: No Limitations General appearance: alert, in no apparent distress - Head Head exam: Present: atraumatic, normocephalic - Eye Eye exam: Present: normal appearance - ENT ENT exam: Present: mucous membranes moist - Neck Neck exam: Present: normal inspection, full ROM. Absent: tenderness, meningi smus, lymphadenopathy, thyromegaly - Respiratory Respiratory exam: Present: normal lung sounds bilaterally. Absent: respiratory distress, wheezes, stridor, chest wall tenderness - Cardiovascular Cardiovascular Exam: Present: regular rate, normal rhythm, normal heart sounds. Absent: systolic murmur, diastolic murmur, rubs, gallop - GI/Abdominal GI/Abdominal exam: Present: soft, normal bowel sounds. Absent: distended, tenderness, guarding, rebound, rigid, bruit, hernia - Rectal Rectal exam: Present: deferred - Extremities Exam Extremities exam: Present: normal inspection, full ROM, normal capillary refill. Absent: tenderness - Back Exam Back exam: Present: normal inspection, full ROM, tenderness, CVA tenderness (R), CVA tenderness (L). Absent: muscle spasm, vertebral tenderness, rash noted - Neurological Exam Neurological exam: Present: alert, oriented X3, CN II-XII intact, normal gait - Psychiatric Psychiatric exam: Present: normal affect, normal mood - Skin Skin exam: Present: warm, dry, intact, normal color. Absent: rash ED Course Vital Signs 06/07/19 06/07/19 19:12 22:15 Temperature 98.6 F Pulse Rate 88 Respiratory 18 18 Rate Blood Pressure 141/81 O2 Sat by Pulse 98 Oximetry ED Medical Decision Making - Lab Data Result diagrams: 06/07/19 20:08 06/07/19 20:08 Labs 06/07/19 06/07/19 06/07/19 20:08 20:08 Unknown WBC 8.0 RBC 4.77 Hgb 12.9 Hct 39.3 MCV 82 MCH 27 L MCHC 33 RDW 15.7 H Plt Count 288 Lymph % (Auto) 28.3 [place] % (Auto) 10.4 H Eos % (Auto) 3.9 Baso % (Auto) 1.3 Lymph # 2.3 Amador # 0.8 Eos # 0.3 Baso # 0.1 Seg Neutrophils % 56.1 Seg Neutrophils # 4.5 Sodium 137 Potassium 4.5 Chloride 99.5 Carbon Dioxide 25 Anion Gap 17 BUN 18 H Creatinine 0.5 L Estimated GFR > 60 BUN/Creatinine Ratio 36 Glucose 144 H Calcium 9.0 Urine Color Yellow Urine Turbidity Cloudy Urine pH 5.0 Ur Specific [place] 1.015 Urine Protein 100 mg/dl Urine Glucose (UA) >=500 Urine Ketones Neg Urine Blood Sm Urine Nitrite Neg Urine Bilirubin Neg Urine Urobilinogen < 2.0 Ur Leukocyte Esterase Sm Urine WBC (Auto) 25.0 H Urine RBC (Auto) 6.0 U Epithel Cells (Auto) 9.0 Urine Bacteria (Auto) 4+ Urine Mucus Few - Radiology Data Radiology results: report reviewed, image reviewed Findings [facility] [address] [place] [address] Cat Scan Report Signed Patient: MK KAHN MR# : [id number] : 1970 Acct:[id number] Age/Sex: 48 / F ADM Date: 06/07/19 Loc: ED Attending Dr: Ordering Physician: BYRON GOMEZ NP Date of Service: 06/07/19 Procedure(s): CT abdomen pelvis wo con Accession Number(s): [id number] cc: BYRON GOMEZ NP CT ABDOMEN AND PELVIS WITHOUT CONTRAST INDICATION / CLINICAL INFORMATION: Abdominal and flank pain. TECHNIQUE: Axial CT images were obtained through the abdomen and pelvis without IV contrast. All CT scans at this location are performed using CT dose reduction for ALARA by means of automated exposure control. COMPARISON: None available. FINDINGS: LOWER CHEST: No significant abnormality. LIVER: No significant abnormality. GALLBLADDER: No significant abnormality. BILE DUCTS: No significant abnormality. PANCREAS: No significant abnormality. SPLEEN: No significant abnormality. ADRENALS: A 2.2 cm soft tissue attenuation nodule adjacent to the right adrenal gland is noted, indeterminate. Left adrenal gland is normal. RIGHT KIDNEY and URETER: No significant abnormality. LEFT KIDNEY and URETER: Coarse calcification approximately 1 cm is noted in the interpolar region cortex medially, with adjacent cortical defects suggesting atrophy. No calculus is identified in the collecting system or ureter. STOMACH and SMALL BOWEL: No significant abnormality. COLON: No significant abnormality. APPENDIX: No significant abnormality. PERITONEUM: No free fluid. No free air. No fluid collection. LYMPH NODES: No adenopathy. AORTA and ARTERIES: Extensive atherosclerosis of the abdominal aorta and visceral arteries, particularly small renal artery branches and the splenic artery. No aneurysmal dilatation. IVC and VEINS: No significant abnormality. URINARY BLADDER: No significant abnormality. REPRODUCTIVE ORGANS: No significant abnormality. SKELETAL SYSTEM: No significant abnormality. IMPRESSION: 1. No acute finding. 2. Indeterminate 2.2 cm nodule adjacent to the right adrenal gland may further evaluated with adrenal protocol CT or MRI scan as clinically indicated. 3. Coarse cortical calcification in the left kidney. No calculus is identified in the renal collecting systems or ureters or bladder. Signer Name: Delon Anderson MD Signed: 06/07/2019 10:26 PM Workstation Name: [id number] Transcribed By: PRIMITIVO Dictated By: Delon Anderson MD Electronically Authenticated By: Delon Anderson MD Signed Date/Time: 06/07/192225 DD/ 18 TD/TT: - Medical Decision Making pt is improved, CT confirms renal cyst, some chronic renal calcification, no renal stones, UA: pos for leuk, wbc, bacteria given hx or dmII, and recurringl uti pt given rocephin 1gm ivpb plan : dc to home with rx for levaquin, toradol, follow up with pcp in 2-3 days return to ed if symptoms worse, pt verbalized agreement and understanding of same. Critical care attestation.: If time is entered above; I have spent that time in minutes in the direct care of this critically ill patient, excluding procedure time. ED Disposition Clinical Impression: Renal cyst UTI (urinary tract infection) Qualifiers: Urinary tract infection type: acute cystitis Hematuria presence: without hematuria Qualified Code(s): N30.00 - Acute cystitis without hematuria Disposition: DC-01 TO HOME OR SELFCARE Is pt being admited?: No Does the pt Need Aspirin: No Condition: Stable Instructions: Urinary Tract Infection in Women (ED), Dysuria (ED), Flank Pain (ED) Prescriptions: levoFLOXacin [Levaquin TAB] 500 mg PO QDAY #10 tablet Ketorolac [Toradol] 10 mg PO Q6H PRN #12 tablet PRN Reason: Pain Referrals: SHANNAN MULLIGAN MD [Staff Physician] - 3-5 Days Forms: Work/School Release Form(ED) Time of Disposition: 23:42
[2019-06-07] MEDS ORDERED: ROCEPHIN/NS 1 GM/50 ML 1 GM/50 ML BAG IV ONE (23:36)
[2019-06-08 04:35] VITALS: BP 136/84
== END 2019-06-08 00:35 | disposition home or self-care (01) ==
LOC: ED 18:53
DX: N39.0 Urinary tract infection, site not specified (principal); N28.1 Cyst of kidney, acquired; I10 Essential (primary) hypertension; E11.9 Type 2 diabetes mellitus without complications; K21.9 Gastro-esophageal reflux disease without esophagitis; J45.909 Unspecified asthma, uncomplicated; I25.2 Old myocardial infarction; Z95.5 Presence of coronary angioplasty implant and graft; Z98.890 Other specified postprocedural states; Z79.899 Other long term (current) drug therapy
CPT/HCPCS: 36415; 74176; 80048; 81001; 85025; 87086; 96365; 96375; 99284; J0696; J1885; J2405